=== PATIENT | male | born 1980 | race Two or more races ===

== ENCOUNTER → 2022-08-11 13:27 | Outpatient (BNVA) | payer OTHER, SELFPAY | PROVIDERS: Visit Provider Internal Medicine | DX: S39.012A Strain of muscle, fascia and tendon of lower back, initial encounter (principal); X50.0XXA Overexertion from strenuous movement or load, initial encounter | CPT/HCPCS: 99203 ==

== ENCOUNTER → 2022-08-19 13:21 | Outpatient (BNVA) | payer OTHER, SELFPAY | PROVIDERS: Visit Provider Physician Assistant | DX: S39.012D Strain of muscle, fascia and tendon of lower back, subsequent encounter (principal); X50.0XXD Overexertion from strenuous movement or load, subsequent encounter | CPT/HCPCS: 99213 ==

== ENCOUNTER 2023-08-10 08:11 | Outpatient (AMB) | payer OTHER, SELFPAY ==
--- NOTE | 2023-08-10 08:25 | MHC.PC.OV ---
Vital Signs 08/10/23 08:29 08/10/23 08:50 Height 5 ft 10.87 in Weight 193 lb 0.4 oz BMI 27.0 BP 122/90 H 122/84 Blood Pressure Location Lt brachial Lt brachial Position Sitting Sitting Pulse 89 Pulse Source Pulse Oximeter Temp Source Skin Pulse Oximetry (%) 97 Oxygen Delivery Method Room Air Intake Visit Reasons: New patient-Requesting labs Intake Note: Patient is a new patient here to establish care [employer] Sales Associate Required: No Allergies No Known Allergies Allergy (Verified 08/10/23 08:37) Medication List - Last Reconciled 08/10/23 by TREVON Florez No Known Home Meds Tobacco use date assessed: 08/10/23 Dental Screening Dental Screen Date: 08/10/23 Did you have a dental visit in the last 12 months?: Yes Did you have a dental problem in the last 6 months where you did not have access to dental care?: No Was dental information given to patient?: Patient has dentist HPI New patient-Requesting labs HPI Details Patient is a 42-year-old male who presents today for physical exam as a new patient. No PCP in many years, patient reports that he moved from [place] 4 years ago. Medical history significant for overweight and nicotine dependence-patient reports smoking about 5-7 cigarettes per day for the past 7 years-interested in nicotine patch. Reports tetanus vaccine within 10 years. Dental exam up-to-date, does not see eye doctor-denies problems with his eyes. Denies shortness of breath or chest pain. Patient requesting blood work. [facility] Surgical History No pertinent past surgical history Family History Mother No problems noted. Father No problems noted. Social History Housing: House Patient Tobacco Use Status: Never used Tobacco service: No Current occupational status: employed Cognitive needs: No Hearing needs: No Vision needs: No Questionnaire PHQ-9 Over the last 2 weeks, how often have you been bothered by any of the following problems? 1. Little interest or pleasure in doing things: not at all 2. Feeling down, depressed, or hopeless: not at all 3. Trouble falling or staying asleep, or sleeping too much: not at all 4. Feeling tired or having little energy: not at all 5. Poor appetite or overeating: not at all 6. Feeling bad about yourself - or that you are a failure or have let yourself or your family down: not at all 7. Trouble concentrating on things, such as reading the newspaper or watching television: not at all 8. Moving or speaking so slowly that other people could have noticed. Or the opposite - being so fidgety or restless that you have been moving around a lot more than usual: not at all 9. Thoughts that you would be better off or of hurting yourself in some way: not at all Total score: 0 Depression Screening Interpretation: Negative 90225 - PHQ-9 Billing: Yes Source: Developed by Drs. Andrés Waller, Lanny Boston, Jaxson Mckeon and colleagues, with an educational bridgett from [employer]. AUDIT C Alcohol Use Questionnaire (AUDIT-C) 1. How often do you have a drink containing alcohol?: Monthly or less 2. How many drinks containing alcohol do you have on a typical day when you are drinking?: 1 or 2 3. How often do you have six or more drinks on one occasion?: Never Total Score: 1 Score Reviewed/Action Taken: No JAMIE-7 AMB Questionnaire JAMIE-7 Date JAMIE - 7 assessed: 08/10/23 Feeling nervous, anxious, or on edge: 0 = Not at all Not being able to stop or control worryin = Not at all Worrying too much about different things: 0 = Not at all Trouble relaxin = Not at all Being so restless that it is hard to sit still: 0 = Not at all Becoming easily annoyed or irritable: 0 = Not at all Feeling afraid as if something awful might happen: 0 = Not at all Total JAMIE-7 score (0-4 normal; 5-9 mild; 10-14 moderate; 15-21 severe): 0 Source: Developed by Drs. Andrés Waller, Lanny Boston, Jaxson Mckeon and colleagues, with an educational bridgett from [employer]. JAMIE-7 Assessment Billing JAMIE-7 Assessment Tool: JAMIE-7 Assessment 11003 Review of Systems Const Denies body aches, Denies chills, Denies fever(s) and Denies headache(s) Eyes Denies change in vision ENT Denies dizziness, Denies otalgia, Denies headache(s), Denies nasal discharge, Denies sinus pain and Denies sore throat Card Denies chest pain, Denies edema, Denies lightheadedness and Denies dyspnea Resp Denies cough, Denies dyspnea and Denies wheezing GI Denies abdominal pain, Denies constipation, Denies diarrhea, Denies nausea and Denies vomiting Denies dysuria Musc Denies myalgias Skin/Breast Denies rash Neuro Denies dizziness and Denies headache(s) Aller/Immun Denies wheezing Physical exam (Primary Care) Vital Signs: Last Vital Signs BP 122/90 H 08/10/23 08:29 Oxygen Delivery Method Room Air 08/10/23 08:29 BMI result Body Mass Index 27.0 Tobacco/Smoking Status: Tobacco use Status Tobacco use date assessed 08/10/23 08/10/23 08:36 Patient Tobacco Use Status Never used Tobacco 08/10/23 08:36 PHQ-9: PHQ-9 Score PHQ-9: Total score 0 08/10/23 08:36 Depression Screening Interpretation: Negative Const General: cooperative and no acute distress Orientation/consciousness: patient oriented x3 HENMT Head: Yes normocephalic and Yes atraumatic Ears: TM's normal bilaterally Face and sinus: Yes sinuses nontender Mouth: oropharynx normal and moist mucous membranes Throat: Yes posterior oropharynx normal Eyes General: appearance normal, both eyes and all related structures Pupils: Equal, round and reactive pupils present EOM: EOMs intact bilaterally Neck Neck: Yes normal visual inspection, Yes full ROM and Yes no lymphadenopathy Thyroid: Thyroid normal Resp Effort & Inspection: normal respiratory effort and able to speak in complete sentences Auscultation: clear to auscultation bilaterally, no crackles, no rales, no rhonchi and no wheezes Cardio Rate: regular rate Rhythm: regular rhythm Heart sounds: S1 normal heart sound present, S2 normal heart sound present and no murmurs GI Inspection: Yes normal to inspection Palpation (GI): Soft to palpation, not firm, nontender, no guarding, not rigid and no hepatosplenomegaly Auscultation: normal bowel sounds General: No CVA tenderness Back/Spine/Pelvis Back: No CVA tenderness Skin General skin exam: no rashes or lesions noted Neuro General: patient oriented x3 Cranial nerves: Yes Equal, round and reactive pupils present Gait exam (Neuro): Normal gait present Extrem General: Yes full ROM and No edema Assessment and Plan Assessment & Plan (1) Adult general medical exam: Comment: Tetanus IZ within 10 years per pt. Code(s): Z00.00 - Encounter for general adult medical examination without abnormal findings Plan: Repeat in 1 year (2) Nicotine dependence: Comment: Smoke 5-7 cigarettes per day Code(s): F17.200 - Nicotine dependence, unspecified, uncomplicated Plan: Nicotine patch provided-do not smoke going on nicotine patch (3) Overweight (BMI 25.0-29.9): Code(s): E66.3 - Overweight Plan: Healthy food choices and exercise as tolerated Orders: Orders Vitamin B12 and Folate Today Z00.00 - Encounter for general adult medical examination without abnormal findings TSH reflex Free T4 Today Z00.00 - Encounter for general adult medical examination without abnormal findings Complete Blood Count Auto Diff Today Z00.00 - Encounter for general adult medical examination without abnormal findings Vitamin D 25-OH Total Today Z00.00 - Encounter for general adult medical examination without abnormal findings Lipid Panel Today Z00.00 - Encounter for general adult medical examination without abnormal findings Comprehensive [place]. Panel Fast Today Z00.00 - Encounter for general adult medical examination without abnormal findings Medications: New nicotine 1 patch transdermal Q24H 28 ea 1RF F17.200 - Nicotine dependence, unspecified, uncomplicated Coding Level of Care Code New Pt Prev Care 40-64y(04823) Diagnoses Adult general medical exam Z00.00 Nicotine dependence F17.200 Overweight (BMI 25.0-29.9) E66.3 Additional Codes JAMIE-7 Assessment Billing - JAMIE-7 Assessment Tool: JAMIE-7 Assessment 29022 ([id number])
[2023-08-10 08:29] VITALS: BP 122/90; PULSE 89; O2SAT 97; BMI 27.0
[2023-08-10 08:50] VITALS: BP 122/84
== END 2023-08-10 08:54 | disposition home or self-care (01) ==
PROVIDERS: PCP Nurse Practitioner Family; Visit Provider Nurse Practitioner Family
DX: Z00.00 Encounter for general adult medical examination without abnormal findings (principal); F17.210 Nicotine dependence, cigarettes, uncomplicated; E66.3 Overweight
CPT/HCPCS: 99386

== ENCOUNTER 2023-08-12 08:30 | Outpatient (REF) | payer OTHER, SELFPAY ==
[2023-08-12 08:40] LABS: MANUAL DIFF FLAG NO
[2023-08-12 08:48] LABS: Basophils Absolute Auto 0.1 X10*3/uL (0.0-0.2); Basophils Percent Auto 0.6 % (0-2); Eosinophils Absolute Auto 0.4 X10*3/uL (0.0-0.4); Hematocrit 51.6 % (42.0-52.0); Hemoglobin 17.2 g/dl (14.0-18.0); Imm Gran Abs Auto 0.12 X10*3/uL (0.00-0.03); Lymphocytes Percent Auto 17.2 % (20-40); Mean Corpuscular HGB Conc 33.3 g/dl (31.0-36.0); Mean Corpuscular Volume 83.9 fL (80.0-98.0); Mean Platelet Volume 9.7 fL (9.4-12.4); Monocytes Absolute Auto 1.1 X10*3/uL (0.1-1.2); Monocytes Percent Auto 9.3 % (2-11); Neutrophils Absolute Auto 8.2 x10*3/uL (2.0-8.3); Neutrophils Percent Auto 68.9 % (45-73); Platelet Count 290 X10*3/uL (160-400); Red Blood Count 6.15 X10*6/uL (4.60-5.80); Red Cell Distribution Width 13.8 % (11.0-16.0); White Blood Count 11.8 X10*3/uL (4.8-10.8)
[2023-08-12 09:37] LABS: Alanine Aminotransferase 47 U/L (0-40); Albumin Level 4.8 g/dL (3.5-5.0); Alkaline Phosphatase 70 U/L (39-117); Anion Gap 17 (12-20); Aspartate Amino Transferase 30 U/L (5-37); Bilirubin Total 0.6 mg/dL (0.0-1.0); Blood Urea Nitrogen 12 mg/dL (9-16); Calcium 10.2 mg/dL (8.4-10.2); Carbon Dioxide 25 mmol/L (22-29); Chloride 106 mmol/L (96-108); Cholesterol 188 mg/dL (<200); Estimated Glomerular Filt Rate > 60; Glucose Fasting 101 mg/dL (60-99); HDL Cholesterol 45 mg/dL (>40); LDL Cholesterol Calculated 130 mg/dL (<100); Potassium 4.6 mmol/L (3.3-5.1); Sodium 143 mmol/L (135-145); Total Protein 7.8 g/dL (6.5-8.0); Triglycerides 65 mg/dL (<150)
[2023-08-12 09:55] LABS: TSH reflex Free T4 0.73 uIU/mL (0.32-4.0); Vitamin D 25-OH Total 23.9 ng/mL (>30)
[2023-08-12 10:10] LABS: Folate 8.9 ng/mL (> or = 4.0); Vitamin B12 748 pg/mL (200-900)
== END 2023-08-12 08:31 | disposition home or self-care (01) ==
LOC: HO.LAB 08:30
PROVIDERS: PCP Nurse Practitioner Family; Visit Provider Nurse Practitioner Family
DX: Z00.00 Encounter for general adult medical examination without abnormal findings (principal)
CPT/HCPCS: 36415; 80053; 80061; 82306; 82607; 82746; 84443; 85025

== ENCOUNTER 2023-08-19 10:30 | Outpatient (REF) | payer OTHER, SELFPAY | END 2023-08-19 10:31 | disposition home or self-care (01) | LOC: HO.LAB 10:30 | PROVIDERS: PCP Nurse Practitioner Family; Visit Provider Nurse Practitioner Family | DX: R39.9 Unspecified symptoms and signs involving the genitourinary system (principal) | CPT/HCPCS: 81003 ==

== ENCOUNTER 2023-08-31 13:38 | Outpatient (AMB) | payer OTHER, SELFPAY ==
[2023-08-31 13:44] VITALS: BP 124/86; PULSE 86; O2SAT 98; BMI 27.3
--- NOTE | 2023-08-31 13:44 | A.OFFPC_ITS ---
Vital Signs 08/31/23 13:44 Height 5 ft 10 in Weight 190 lb BMI 27.3 BP 124/86 Blood Pressure Location Lt brachial Position Sitting Pulse 86 Pulse Source Pulse Oximeter Pulse Oximetry (%) 98 Oxygen Delivery Method Room Air Intake Visit Reasons: BM pain Allergies No Known Allergies Allergy (Verified 08/31/23 13:44) Tobacco use date assessed: 08/10/23 Dental Screening Dental Screen Date: 08/31/23 Did you have a dental visit in the last 12 months?: Yes Did you have a dental problem in the last 6 months where you did not have access to dental care?: No Was dental information given to patient?: Patient has dentist HPI HPI Comments History of Present Illness Details 42-year-old male past medical history si gnificant for elevated fasting glucose, low vitamin-D level, nicotine dependence. Patient last seen by Katrin Nath Np a few weeks ago presents today for patient states bothering feeling underneath his belly button. Patient has a fall on telephone call for interpretation during this appointment patient recommended that he use delay since medical id ore tester during this exam however patient reports he cannot understand the license certified ophthalmic medical technician and declines this and would like his to ore tester via phone. Patient's reports that she recently had surgery and that is why she could not come to the appointment with him today. Refused license certified ophthalmic medical technician. especially when sitting. 3 weeks. Patient states occasional burning when he urinates. Urinalysis completed last week unremarkable. Patient continues to feel discomfort underneath his belly button upon examination appears patient has an umbilical hernia however he denies this states his belly button has always looked puffy like that. Patient also reports left-sided lumbar back pain, urinalysis unremarkable last week negative for blood unlikely kidney stone. Will obtain lumbar spine x-ray. Patient also requesting medication for smoking cessation states nicotine patches to not work for him. [facility] Surgical History No pertinent past surgical history Family History Mother No problems noted. Father No problems noted. Social History Housing: House Patient Tobacco Use Status: Never used Tobacco service: No Current occupational status: employed Cognitive needs: No Hearing needs: No Vision needs: No Questionnaire PHQ-9 Over the last 2 weeks, how often have you been bothered by any of the following problems? 1. Little interest or pleasure in doing things: not at all 2. Feeling down, depressed, or hopeless: not at all 3. Trouble falling or staying asleep, or sleeping too much: not at all 4. Feeling tired or having little energy: not at all 5. Poor appetite or overeating: not at all 6. Feeling bad about yourself - or that you are a failure or have let yourself or your family down: not at all 7. Trouble concentrating on things, such as reading the newspaper or watching television: not at all 8. Moving or speaking so slowly that other people could have noticed. Or the opposite - being so fidgety or restless that you have been moving around a lot more than usual: not at all 9. Thoughts that you would be better off or of hurting yourself in some way: not at all Total score: 0 Depression Screening Interpretation: Negative Depression Screening Done: Yes 22617 - PHQ-9 Billing: Yes Source: Developed by Drs. Andrés Waller, Lanny Boston, Jaxson Mckeon and colleagues, with an educational bridgett from [employer]. Thrive Questionnaire Date Thrive assessed: 08/31/23 I am a: Patient What is your living situation today?: I have a steady place to live Within the past 12 months, did the food you bought not last and you didn't have the money to get more?: Never true Within the past 12 months, did you worry whether your food would run out before you got money to buy more?: Never true Do you have trouble paying for medicines?: No Do you have trouble getting transportation to medical appointments?: No Do you have trouble paying your heating and electricity bill?: No Do you have trouble taking care of your child, family member or friend?: No Do you have trouble with day-to-day activities such as bathing, preparing meals, shopping, managing finances, etc.?: No Are you currently unemployed and looking for a job?: No Are you interested in more education?: No Please select the resources that you would like help with: None AUDIT C Alcohol Use Questionnaire (AUDIT-C) 1. How often do you have a drink containing alcohol?: Monthly or less 2. How many drinks containing alcohol do you have on a typical day when you are drinking?: 1 or 2 3. How often do you have six or more drinks on one occasion?: Never Total Score: 1 Score Reviewed/Action Taken: No JAMIE-7 AMB Questionnaire JAMIE-7 Date JAMIE - 7 assessed: 08/10/23 Source: Developed by Drs. Andrés Waller, Lanny Boston, Jaxson Mckeon and colleagues, with an educational bridgett from [employer]. Review of Systems Const Denies chills, Denies fatigue, Denies fever(s) and Denies poor appetite Eyes Denies no additional complaints ENT Reports Normal hearing present Card Denies chest pain, Denies syncope, Denies rapid heart rate and Denies dyspnea Resp Denies cough and Denies dyspnea GI Reports abdominal pain (discomfort under umbilical region ), Denies change in stool character, Denies constipation, Denies GI cramping, Denies heartburn, Denies diarrhea, Denies nausea and Denies vomiting Denies dysuria, Denies urinary frequency and Denies urinary urgency Neuro Reports Normal hearing present, Denies confusion and Denies syncope Psych Denies confusion Endo Denies fatigue Physical exam (Primary Care) Vital Signs: Last Vital Signs Pulse 86 08/31/23 13:44 BP 124/86 08/31/23 13:44 Pulse Ox 98 08/31/23 13:44 Oxygen Delivery Method Room Air 08/31/23 13:44 BMI result Body Mass Index 27.3 Tobacco/Smoking Status: Tobacco use Status Tobacco use date assessed 08/10/23 08/31/23 13:48 Patient Tobacco Use Status Never used Tobacco 08/31/23 13:48 PHQ-9: PHQ-9 Score PHQ-9: Total score 0 08/31/23 13:50 Depression Screening Interpretation: Negative Thrive Assessment: Date of Thrive Assessment Date Thrive assessed 08/31/23 08/31/23 13:48 Const General: No confusion Orientation/consciousness: No confusion HENMT Head: Yes normocephalic and Yes atraumatic Eyes Conjunctivae: conjunctivae normal Chest Chest palpation & inspection: normal inspection of the chest Resp Effort & Inspection: normal respiratory effort Auscultation: clear to auscultation bilaterally, no crackles, no rhonchi and no wheezes Cardio Rate: regular rate Rhythm: regular rhythm Heart sounds: S1 normal heart sound present and S2 normal heart sound present GI Inspection: Yes normal to inspection Palpation (GI): Soft to palpation, nontender, No hepatosplenomegaly present and Hernia present umbilical Auscultation: normoactive bowel sounds General: Yes no CVA tenderness Back/Spine/Pelvis Back: no CVA tenderness Neuro General: No confusion Cranial nerves: Yes Normal hearing present Extrem General: No edema Assessment and Plan Assessment & Plan (1) Umbilical hernia: Code(s): K42.9 - Umbilical hernia without obstruction or gangrene Plan: Abdominal ultrasound ordered. (2) Lumbar back pain: Code(s): M54.50 - Low back pain, unspecified Plan: Lumbar spine x-ray ordered. Patient advise can take [id number] ibuprofen as needed for pain. (3) Nicotine dependence: Comment: Smoke 5-7 cigarettes per day Code(s): F17.200 - Nicotine dependence, unspecified, uncomplicated Plan: Patient reports indicating patches are not effective for him and would to start on medication for this. varecline 0.5mg dasy 1-3 and 1mg bid 4-7 and there after ordered for smokeing cesstion. Orders: Orders XR lumbar spine 2-3V Today M54.50 - Low back pain, unspecified US abdomen complete Today K42.9 - Umbilical hernia without obstruction or gangrene Medications: New varenicline take 1 tablet by mouth daily on days 1-3; then 1 tablet twice daily (morning and evening) on days 4-7 0.5 mg PO DIRECTED 180 tabs 3RF Discontinued nicotine Discontinued Reason: Patient no longer taking 1 patch transdermal Q24H 28 ea 1RF F17.200 - Nicotine dependence, unspecified, uncomplicated Coding Level of Care Code Est Pt Level 4 (72728) Diagnoses Umbilical hernia K42.9 Lumbar back pain M54.50 Nicotine dependence F17.200
== END 2023-08-31 14:10 | disposition home or self-care (01) ==
PROVIDERS: PCP Nurse Practitioner Family; Visit Provider Nurse Practitioner Family
DX: K42.9 Umbilical hernia without obstruction or gangrene (principal); M54.50 Low back pain, unspecified; F17.200 Nicotine dependence, unspecified, uncomplicated
CPT/HCPCS: 99214

== ENCOUNTER 2023-10-10 07:05 | Outpatient (AMB) | payer OTHER, SELFPAY ==
[2023-10-10 07:13] VITALS: BP 122/80; PULSE 68; O2SAT 98; BMI 27.5
--- NOTE | 2023-10-10 07:13 | MHC.PC.OV ---
Vital Signs 10/10/23 07:13 Height 5 ft 10 in Weight 192 lb BMI 27.5 BP 122/80 Blood Pressure Location Lt brachial Position Sitting Pulse 68 Pulse Source Pulse Oximeter Pulse Oximetry (%) 98 Oxygen Delivery Method Room Air Intake Visit Reasons: pain when defecating Allergies No Known Allergies Allergy (Verified 10/10/23 07:13) Tobacco use date assessed: 08/10/23 Dental Screening Dental Screen Date: 10/10/23 Did you have a dental visit in the last 12 months?: Yes Did you have a dental problem in the last 6 months where you did not have access to dental care?: No Was dental information given to patient?: Patient has dentist HPI HPI Comments History of Present Illness Details 43-year-old male past medical history significant for elevated fasting glucose, low vitamin-D level, nicotine dependence. Patient of Katrin Nath last seen in [facility]. Patient presents today with his who assist in interpretation. Declines certified medical translator. Patient reports pain with defecation x 2 months. Patient reports pain experiences a buring shooting pain up his rectum while having BM and lasts for a while afterward. Denies hx hemrrhoids. Denies rectal bleeding and black tarry stools. Denies urinary symptoms. States BMS a regular/soft goes daily. Denies urinary symptoms. present during exernal rectal exam, no external hemmrrhoids noted. Will draw PSA to evaluate prostate. External perirectal skin noted to have mild erythema. [facility] Surgical History No pertinent past surgical history Family History (Updated 10/10/23 @ 07:14 by Geraldine Downs [facility]) Mother No problems noted. Father No problems noted. Housing: House Patient Tobacco Use Status: Never used Tobacco service: No Current occupational status: employed Cognitive needs: No Hearing needs: No Vision needs: No Questionnaire PHQ-9 Over the last 2 weeks, how often have you been bothered by any of the following problems? 1. Little interest or pleasure in doing things: not at all 2. Feeling down, depressed, or hopeless: not at all 3. Trouble falling or staying asleep, or sleeping too much: not at all 4. Feeling tired or having little energy: not at all 5. Poor appetite or overeating: not at all 6. Feeling bad about yourself - or that you are a failure or have let yourself or your family down: not at all 7. Trouble concentrating on things, such as reading the newspaper or watching television: not at all 8. Moving or speaking so slowly that other people could have noticed. Or the opposite - being so fidgety or restless that you have been moving around a lot more than usual: not at all 9. Thoughts that you would be better off or of hurting yourself in some way: not at all Total score: 0 Depression Screening Interpretation: Negative Depression Screening Done: Yes 41988 - PHQ-9 Billing: Yes Source: Developed by Drs. Andrés Waller, Lanny Boston, Jaxson Mckeon and colleagues, with an educational bridgett from [employer]. Thrive Questionnaire Date Thrive assessed: 08/31/23 AUDIT C Alcohol Use Questionnaire (AUDIT-C) 1. How often do you have a drink containing alcohol?: Monthly or less 2. How many drinks containing alcohol do you have on a typical day when you are drinking?: 1 or 2 3. How often do you have six or more drinks on one occasion?: Never Total Score: 1 Score Reviewed/Action Taken: No JAMIE-7 AMB Questionnaire JAMIE-7 Date JAMIE - 7 assessed: 08/10/23 Source: Developed by Drs. Andrés Waller, Lanny Boston, Jaxson Mckeon and colleagues, with an educational bridgett from [employer]. Review of Systems Const Denies chills, Denies fatigue, Denies fever(s) and Denies poor appetite Eyes Denies no additional complaints ENT Reports Normal hearing present Card Denies chest pain, Denies syncope, Denies rapid heart rate and Denies dyspnea Resp Denies cough and Denies dyspnea GI Denies melena, Denies hematochezia, Denies change in stool character, Denies constipation, Denies diarrhea, Denies nausea, Denies vomiting and Reports other (rectal pain ) Denies dysuria, Denies urinary frequency and Denies urinary urgency Neuro Reports Normal hearing present, Denies confusion and Denies syncope Psych Denies confusion Endo Denies fatigue Physical exam (Primary Care) Vital Signs: Last Vital Signs Pulse 68 10/10/23 07:13 BP 122/80 10/10/23 07:13 Pulse Ox 98 10/10/23 07:13 Oxygen Delivery Method Room Air 10/10/23 07:13 BMI result Body Mass Index 27.5 Tobacco/Smoking Status: Tobacco use Status Tobacco use date assessed 08/10/23 10/10/23 07:15 Patient Tobacco Use Status Never used Tobacco 10/10/23 07:15 PHQ-9: PHQ-9 Score PHQ-9: Total score 0 10/10/23 07:25 Depression Screening Interpretation: Negative Thrive Assessment: Date of Thrive Assessment Date Thrive assessed 08/31/23 10/10/23 07:15 Const General: No confusion Orientation/consciousness: No confusion HENMT Head: Yes normocephalic and Yes atraumatic Eyes Conjunctivae: conjunctivae normal Chest Chest palpation & inspection: normal inspection of the chest Resp Effort & Inspection: normal respiratory effort Auscultation: clear to auscultation bilaterally, no crackles, no rhonchi and no wheezes Cardio Rate: regular rate Rhythm: regular rhythm Heart sounds: S1 normal heart sound present and S2 normal heart sound present GI Inspection: Yes normal to inspection Palpation (GI): Soft to palpation and nontender Rectal Exam - Male: Yes other (mild erythema surrounding rectum ) Neuro General: No confusion Cranial nerves: Yes Normal hearing present Extrem General: No edema Assessment and Plan Assessment & Plan (1) Painful defecation: Code(s): R19.8 - Other specified symptoms and signs involving the digestive system and abdomen Plan: Patient advised can use OTC barrier cream for mild erythema surrounding rectum. Patient advised to stay hydrated and eat high fiber diet to prevent straining with defecation. PSA level ordered to evaluate prostate. Referral entered to gastroenterology for further evaluation via colonscopy. (2) Nicotine dependence: Comment: Smoke 5-7 cigarettes per day Code(s): F17.200 - Nicotine dependence, unspecified, uncomplicated Plan: Patient continues to smoke 5 cigarettes daily. Strongly advised to stop. Patient educated on appropriate Varenicline. Plan Keep scheduled follow up with pcp or follow up sooner if needed. Orders: Orders PSA,Total (Free>4and<10) Today Z12.5 - Encounter for screening for malignant neoplasm of prostate Referrals Gastroenterology Referral R19.8 - Other specified symptoms and signs involving the digestive system and abdomen Coding Level of Care Code Est Pt Level 3 (77538) Diagnoses Painful defecation R19.8 Nicotine dependence F17.200
== END 2023-10-10 07:49 | disposition home or self-care (01) ==
PROVIDERS: PCP Nurse Practitioner Family; Visit Provider Nurse Practitioner Family
DX: R19.8 Other specified symptoms and signs involving the digestive system and abdomen (principal); F17.200 Nicotine dependence, unspecified, uncomplicated
CPT/HCPCS: 99213

== ENCOUNTER 2023-10-10 16:42 | Outpatient (REF) | payer OTHER, SELFPAY ==
[2023-10-10 16:54] LABS: MANUAL DIFF FLAG NO
[2023-10-10 17:35] LABS: Basophils Absolute Auto 0.1 X10*3/uL (0.0-0.2); Basophils Percent Auto 0.6 % (0-2); Eosinophils Absolute Auto 0.3 X10*3/uL (0.0-0.4); Eosinophils Percent Auto 2.6 % (0-4); Hematocrit 47.9 % (42.0-52.0); Hemoglobin 15.6 g/dl (14.0-18.0); Imm Gran Abs Auto 0.06 X10*3/uL (0.00-0.03); Imm Gran Pct Auto 0.5 % (0.0-0.4); Lymphocytes Absolute Auto 2.4 X10*3/uL (1.2-4.9); Mean Corpuscular HGB Conc 32.6 g/dl (31.0-36.0); Mean Corpuscular Hemoglobin 27.3 pg (27.0-33.0); Mean Corpuscular Volume 83.9 fL (80.0-98.0); Mean Platelet Volume 10.7 fL (9.4-12.4); Monocytes Absolute Auto 1.2 X10*3/uL (0.1-1.2); Monocytes Percent Auto 9.4 % (2-11); Neutrophils Absolute Auto 8.5 x10*3/uL (2.0-8.3); Neutrophils Percent Auto 67.9 % (45-73); Platelet Count 297 X10*3/uL (160-400); Red Blood Count 5.71 X10*6/uL (4.60-5.80); Red Cell Distribution Width 13.1 % (11.0-16.0); White Blood Count 12.5 X10*3/uL (4.8-10.8)
[2023-10-10 17:56] LABS: Estimated Average Glucose 108 mg/dL; Hemoglobin A1c % 5.4 % (<6.0)
[2023-10-10 18:28] LABS: Alanine Aminotransferase 27 U/L (0-40); Albumin Level 4.7 g/dL (3.5-5.0); Alkaline Phosphatase 68 U/L (39-117); Anion Gap 12 (12-20); Aspartate Amino Transferase 20 U/L (5-37); Bilirubin Total 0.3 mg/dL (0.0-1.0); Blood Urea Nitrogen 15 mg/dL (9-16); Calcium 9.1 mg/dL (8.4-10.2); Carbon Dioxide 27 mmol/L (22-29); Chloride 104 mmol/L (96-108); Estimated Glomerular Filt Rate > 60; Glucose Random 87 mg/dL (60-115); Potassium 4.1 mmol/L (3.3-5.1); Sodium 139 mmol/L (135-145); Total Protein 7.4 g/dL (6.5-8.0)
[2023-10-10 18:43] LABS: PSA,Total (Free>4and<10) 0.63 ng/mL (0.00-4.00)
[2023-10-10 18:44] LABS: Vitamin D 25-OH Total 34.1 ng/mL (>30)
== END 2023-10-10 16:43 | disposition home or self-care (01) ==
LOC: HO.LAB 16:42
PROVIDERS: Nurse Practitioner Family; Visit Provider Nurse Practitioner Family
DX: Z12.5 Encounter for screening for malignant neoplasm of prostate (principal); D72.829 Elevated white blood cell count, unspecified; R79.89 Other specified abnormal findings of blood chemistry; R73.01 Impaired fasting glucose
CPT/HCPCS: 36415; 80053; 82306; 83036; 84153; 85025

== ENCOUNTER 2023-11-10 09:46 | Outpatient (REF) | payer OTHER, SELFPAY ==
--- NOTE | ~2023-11-10 | US_ITS ---
EXAMINATION: US ABDOMEN LIMITED CLINICAL INFORMATION: Umbilical hernia without obstruction or gangrene. COMPARISON: None available. TECHNIQUE: Real-time imaging of the umbilicus. FINDINGS: There is a fat-containing umbilical hernia with neck measuring 1.2 x 1.1 cm and sac measuring 2.5 x 1.0 x 3.0 cm. US/US abdomen limited IMPRESSION: Fat-containing umbilical hernia as measured above.
== END 2023-11-10 09:47 | disposition home or self-care (01) ==
LOC: HO.US 09:46
PROVIDERS: PCP Nurse Practitioner Family; Visit Provider Nurse Practitioner Family
DX: K42.9 Umbilical hernia without obstruction or gangrene (principal)
CPT/HCPCS: 76705

== ENCOUNTER 2023-12-05 08:06 | Outpatient (AMB) | payer OTHER, SELFPAY ==
--- NOTE | 2023-12-05 08:09 | MHC.OFFVIS ---
Intake Vital Signs 12/05/23 08:10 Height 5 ft 10 in Weight 194 lb 0.108 oz BMI 27.8 BP 131/83 Blood Pressure Location Lt brachial Position Sitting Pulse 97 Intake Visit Reasons: Painful Defecation Intake Note: Brandan presents in the office as a new patient for painful defecation. CC: He states that sometimes he has constipation and diarrhea. Pain in the rectum when he has a BM but no blood when he has a BM. No pains in the stomach. Derrick Boat Operator Required: Yes Allergies No Known Allergies Allergy (Verified 12/05/23 08:15) HPI Painful Defecation HPI Details 43-year-old male with past medical history of transaminitis, umbilical hernia is here today for initial consultation. Patient was sent to us by his PCP rectal pain when moving his bowels. Patient reports that he will frequently have loose stools then constipation. Symptoms alternate. Patient denies any abdominal pain, cramping or any discomfort. Reports rectal itching and burning with bowel movements. Patient denies having any hemorrhoids. Does not feel any discomfort in the rectal area except for burning. Patient denies any melena, hematochezia, unintentional weight loss or ribbon like stools. Patient reports postprandial abdominal bloating. Patient reports that when he has diarrhea he does not feel like his bowels empty completely. Patient denies any dyspepsia, dysphagia or odynophagia [facility] Surgical History No pertinent past surgical history Family History Mother No problems noted. Father No problems noted. Social History Housing: House Patient Tobacco Use Status: Never used Tobacco service: No Current occupational status: employed Cognitive needs: No Hearing needs: No Vision needs: No Review of Systems Const Denies weight gain and Denies weight loss ENT Reports no additional complaints, Denies dysphagia and Denies odynophagia Card Reports no additional complaints Resp Reports no additional complaints GI Denies abdominal pain, Denies belching, Denies melena, Denies bloating, Reports constipation, Denies dysphagia, Denies excessive flatus, Denies dyspepsia, Denies heartburn, Denies diarrhea, Reports loose stools, Denies nausea, Denies odynophagia and Denies vomiting Reports no additional complaints Musc Reports no additional complaints Neuro Reports no additional complaints Psych Reports no additional complaints Endo Reports no additional complaints Physical Exam Vital Signs: Last Vital Signs Pulse 97 12/05/23 08:10 BP 131/83 12/05/23 08:10 BMI result Body Mass Index 27.8 Const General: healthy appearing, no acute distress and well developed Nutritional Appearance: well nourished Orientation/consciousness: patient oriented x3 Resp Effort & Inspection: normal respiratory effort, able to speak in complete sentences, no tracheal deviation and symmetric chest movement Auscultation: clear to auscultation bilaterally Cardio Rate: regular rate GI Inspection: Yes normal to inspection and No distended Palpation (GI): Soft to palpation, not firm, nontender and No hepatosplenomegaly present Auscultation: normal bowel sounds General: Yes no CVA tenderness Back/Spine/Pelvis Back: no CVA tenderness Skin General skin exam: elasticity normal, turgor normal and dry skin Neuro General: patient oriented x3 Psych Appearance: grossly normal Mental Status: mental status grossly normal Assessment & Plan Assessment & Plan (1) Painful defecation: Code(s): R19.8 - Other specified symptoms and signs involving the digestive system and abdomen (2) IBS (irritable bowel syndrome): Code(s): K58.9 - Irritable bowel syndrome without diarrhea Qualifiers: Irritable bowel syndrome type: with both diarrhea and constipation Qualified Code(s): K58.2 - Mixed irritable bowel syndrome Plan Discussed with patient dietary changes. Increase fiber in his diet to help him bulk stools. Will send script for Citrucel. Patient can also take stool softener. Proctosol ordered to help with rectal burning. Sitz baths with Epsom salts recommended. Patient will return in 5 weeks, sooner on as needed basis. Patient is agreeable to this plan and verbalizes understanding of instructions. He was given the opportunity to ask questions and all questions answered. Thank you for allowing me to participate in his care Medications: New methylcellulose (laxative) (Citrucel) 500 mg PO DAILY 30 tabs 2RF K59.00 - Constipation, unspecified hydrocortisone 2.5% (Proctosol HC) 1 appl ME BID-QID PRN 30 grams 2RF hemorrhoids K64.9 - Unspecified hemorrhoids docusate sodium 100 mg PO DAILY 30 caps 3RF K59.00 - Constipation, unspecified Coding Level of Care Code New Pt Level 3 (97550) Diagnoses Painful defecation R19.8 Irritable bowel syndrome with both constipation and diarrhea K58.2 Irritable bowel syndrome type: with both diarrhea and constipation Time Spent (min) 40 Comment 30 minutes spent with patient and additional 10 minutes spent reviewing his records
[2023-12-05 08:10] VITALS: BP 131/83; PULSE 97; BMI 27.8
== END 2023-12-05 09:34 | disposition home or self-care (01) ==
PROVIDERS: PCP Nurse Practitioner Family; Visit Provider Nurse Practitioner Family
DX: R19.8 Other specified symptoms and signs involving the digestive system and abdomen (principal); K58.2 Mixed irritable bowel syndrome
CPT/HCPCS: 99203

== ENCOUNTER → 2023-12-05 08:06 | Outpatient (BNVA) | payer OTHER, SELFPAY | PROVIDERS: PCP Nurse Practitioner Family; Visit Provider Nurse Practitioner Family | DX: R19.8 Other specified symptoms and signs involving the digestive system and abdomen (principal); K58.2 Mixed irritable bowel syndrome | CPT/HCPCS: 99202 ==

== ENCOUNTER 2024-01-09 08:59 | Outpatient (AMB) | payer OTHER, SELFPAY ==
--- NOTE | 2024-01-09 09:02 | A.OFFVIS_ITS ---
Intake Vital Signs 01/09/24 09:05 Height 5 ft 10 in Weight 196 lb 3.382 oz BMI 28.2 BP 135/88 Blood Pressure Location Lt brachial Position Sitting Pulse 83 Intake Visit Reasons: 5 week follow up Intake Note: Brandan presents in the office as a 5 week follow up. CC: No concerns today just a follow up. Allergies No Known Allergies Allergy (Verified 01/09/24 09:05) HPI 5 week follow up HPI Details LAST VISIT Painful defecation IBS (irritable bowel syndrome) Plan Discussed with patient dietary changes. Increase fiber in his diet to help him bulk stools. Will send script for Citrucel. Patient can also take stool softener. Proctosol ordered to help with rectal burning. Sitz baths with Epsom salts recommended. Patient will return in 5 weeks, sooner on as needed basis. Patient is agreeable to this plan and verbalizes understanding of instructions. He was given the opportunity to ask questions and all questions answered. ? Thank you for allowing me to participate in his care Medications New methylcellulose (laxative) (Citrucel) 500 mg PO DAILY 30 tabs 2RF K59.00 hydrocortisone 2.5% (Proctosol HC) 1 appl ND BID-QID PRN 30 grams 2RF hemor rhoids K64.9 docusate sodium 100 mg PO DAILY 30 caps 3RF K59.00 TODAY'S VISIT Patient is here today for follow-up. Patient is accompanied by his friend. Patient reports that he is moving his bowels better now, however states that he continues to have discomfort and burning. Patient states that he used Proctosol and did not notice much of help. Patient however would like to have refill. Patient states that he no longer has Citrucel. Uses Colace and states that is able to move his bowels better. Patient continues to have constipation of. Bowel movements every couple days or so. When having a bowel movement not always feeling like emptying completely. Patient denies any melena, hematochezia, unintentional weight loss or ribbon like stools. Patient denies any dyspepsia, dysphagia or odynophagia. [facility] Surgical History No pertinent past surgical history Family History Mother No problems noted. Father No problems noted. Social History Housing: House Patient Tobacco Use Status: Never used Tobacco service: No Current occupational status: employed Cognitive needs: No Hearing needs: No Vision needs: No Review of Systems Const Denies weight gain and Denies weight loss ENT Reports no additional complaints, Denies dysphagia and Denies odynophagia Card Reports no additional complaints Resp Reports no additional complaints GI Denies abdominal pain, Denies belching, Denies melena, Denies bloating, Reports constipation, Denies dysphagia, Denies excessive flatus, Denies dyspepsia, Denies heartburn, Denies diarrhea, Denies loose stools, Denies nausea, Denies odynophagia, Denies vomiting and Reports other (Rectal pain) Reports no additional complaints Musc Reports no additional complaints Neuro Reports no additional complaints Psych Reports no additional complaints Endo Reports no additional complaints Physical Exam Vital Signs: Last Vital Signs Pulse 83 01/09/24 09:05 BP 135/88 01/09/24 09:05 BMI result Body Mass Index 28.2 Const General: healthy appearing, no acute distress and well developed Nutritional Appearance: well nourished Orientation/consciousness: patient oriented x3 Resp Effort & Inspection: normal respiratory effort, able to speak in complete sentences, no tracheal deviation and symmetric chest movement Auscultation: clear to auscultation bilaterally Cardio Rate: regular rate GI Inspection: Yes normal to inspection and No distended Palpation (GI): Soft to palpation, not firm, nontender and No hepatosplenomegaly present Auscultation: normal bowel sounds General: Yes no CVA tenderness Back/Spine/Pelvis Back: no CVA tenderness Skin General skin exam: elasticity normal, turgor normal and dry skin Neuro General: patient oriented x3 Psych Appearance: grossly normal Mental Status: mental status grossly normal Assessment & Plan Assessment & Plan (1) Painful defecation: Code(s): R19.8 - Other specified symptoms and signs involving the digestive system and abdomen (2) IBS (irritable bowel syndrome): Code(s): K58.9 - Irritable bowel syndrome without diarrhea Qualifiers: Irritable bowel syndrome type: without diarrhea Qualified Code(s): K58.9 - Irritable bowel syndrome without diarrhea Plan Patient will start taking MiraLax in the morning and Dulcolax capsules in the evening. Patient was encouraged to increase fluid intake and activity to promote better bowel motility. Patient will return in 4 weeks paperwork about colonoscopy given to patient. Will discuss prep when patient returns food patient and his friend are agreeable to plan of care and verbalizes understanding of instructions. They were given the opportunity to ask questions and questions answered. Thank you for allowing me to participate in his care Medications: New polyethylene glycol 3350 (Miralax) 17 grams PO DAILY 510 grams 2RF Changed From docusate sodium 100 mg PO DAILY 30 caps 3RF K59.00 - Constipation, unspecified To docusate sodium 200 mg (2 x 100 mg) PO DAILY 60 caps 3RF K59.00 - Constipation, unspecified Refilled hydrocortisone 2.5% (Proctosol HC) 1 appl ND BID-QID 90 days PRN 30 grams 2RF hemorrhoids K64.9 - Unspecified hemorrhoids Coding Level of Care Code Est Pt Level 3 (55033) Diagnoses Painful defecation R19.8 Irritable bowel syndrome without diarrhea K58.9 Irritable bowel syndrome type: without diarrhea Time Spent (min) 35 Comment 15 minutes spent with patient and additional 10 minutes spent reviewing his records
[2024-01-09 09:05] VITALS: BP 135/88; PULSE 83; BMI 28.2
== END 2024-01-09 09:33 | disposition home or self-care (01) ==
PROVIDERS: PCP Nurse Practitioner Family; Visit Provider Nurse Practitioner Family
DX: R19.8 Other specified symptoms and signs involving the digestive system and abdomen (principal); K58.9 Irritable bowel syndrome, unspecified
CPT/HCPCS: 99213

== ENCOUNTER → 2024-01-09 08:59 | Outpatient (BNVA) | payer OTHER, SELFPAY | PROVIDERS: PCP Nurse Practitioner Family; Visit Provider Nurse Practitioner Family | DX: K58.9 Irritable bowel syndrome, unspecified (principal); R19.8 Other specified symptoms and signs involving the digestive system and abdomen | CPT/HCPCS: 99212 ==

== ENCOUNTER 2024-02-06 08:59 | Outpatient (AMB) | payer OTHER, SELFPAY ==
--- NOTE | 2024-02-06 09:02 | A.OFFVIS_ITS ---
Intake Vital Signs 02/06/24 09:04 Height 5 ft 10 in Weight 195 lb 5.273 oz BMI 28.0 BP 134/87 Blood Pressure Location Lt brachial Position Sitting Pulse 81 Intake Visit Reasons: 4 week follow up discuss colonoscopy/rectal pain Intake Note: Brandan returns today in 4 weeks follow up of rectal pain and to discuss colonoscopy. CC: Patient reports feeling so so and still having rectal pain. 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 Patient was encouraged to increase fluid intake and activity to promote better bowel motility. Patient will return in 4 weeks paperwork about colonoscopy given to patient. Will discuss prep when patient returns food pa joslyn and his friend are agreeable to plan of care and verbalizes understanding of instructions. They were given the opportunity to ask questions and questions answered. ? Thank you for allowing me to participate in his care Medications New polyethylene glycol 3350 (Miralax) 17 grams PO DAILY 510 grams 2RF Changed Changed From docusate sodium 100 mg PO DAILY 30 caps 3RF K59.00 Changed To docusate sodium 200 mg (2 x 100 mg) PO DAILY 60 caps 3RF K59.00 Refilled hydrocortisone 2.5% (Proctosol HC) 1 appl [place] BID-QID 90 days PRN 30 grams 2 RF hemorrhoids K64.9 TODAY'S VISIT Patient is here today for follow-up and to discuss going for colonoscopy. Patient continues to have rectal pain and burning despite taking Sitz baths and applying hydrocortisone cream. Patient also reports left lower quadrant discomfort. Denies any diarrhea. Reports occasional postprandial abdominal bloating, especially when he is constipated. Patient is taking MiraLax in the morning senna and Colace in the evening and continues to be constipated. Patient denies any rectal bleed or melena. Patient had normal H and H last month. Patient denies any unintentional weight loss. No family history of colon cancer. Patient reports that he never had anesthesia in the past. No history of sleep apnea. Not on any anticoagulation medication. Patient denies dyspepsia, dysphagia or odynophagia. [facility] Surgical History No pertinent past surgical history Family History Mother No problems noted. Father No problems noted. Social History Housing: House Patient Tobacco Use Status: Never used Tobacco service: No Current occupational status: employed Cognitive needs: No Hearing needs: No Vision needs: No Review of Systems Const Denies weight gain and Denies weight loss ENT Reports no additional complaints, Denies dysphagia and Denies odynophagia Card Reports no additional complaints Resp Reports no additional complaints GI Denies abdominal pain, Denies belching, Denies melena, Denies bloating, Denies change in bowel habits, Denies dysphagia, Denies excessive flatus, Denies dyspepsia, Denies heartburn, Denies diarrhea, Denies loose stools, Denies nausea, Denies odynophagia, Denies vomiting and Reports other (Rectal pain) Reports no additional complaints Musc Reports no additional complaints Neuro Reports no additional complaints Psych Reports no additional complaints Endo Reports no additional complaints Physical Exam Vital Signs: Last Vital Signs Pulse 81 02/06/24 09:04 BP 134/87 02/06/24 09:04 BMI result Body Mass Index 28.0 Const General: healthy appearing, no acute distress and well developed Nutritional Appearance: well nourished Orientation/consciousness: patient oriented x3 Resp Effort & Inspection: normal respiratory effort, able to speak in complete sentences, no tracheal deviation and symmetric chest movement Auscultation: clear to auscultation bilaterally Cardio Rate: regular rate GI Inspection: Yes normal to inspection and No distended Palpation (GI): Soft to palpation, not firm, nontender and No hepatosplenomegaly present Auscultation: normal bowel sounds General: Yes no CVA tenderness Back/Spine/Pelvis Back: no CVA tenderness Skin General skin exam: elasticity normal, turgor normal and dry skin Neuro General: patient oriented x3 Psych Appearance: grossly normal Mental Status: mental status grossly normal Assessment & Plan Assessment & Plan (1) Painful defecation: Code(s): R19.8 - Other specified symptoms and signs involving the digestive system and abdomen (2) IBS (irritable bowel syndrome): Code(s): K58.9 - Irritable bowel syndrome without diarrhea Qualifiers: Irritable bowel syndrome type: with constipation Qualified Code(s): K58.1 - Irritable bowel syndrome with constipation (3) Chronic idiopathic constipation: Code(s): K59.04 - Chronic idiopathic constipation Plan Patient will stop taking senna and will start taking Dulcolax with Colace. Patient will be sent for diagnostic colonoscopy. Patient continues to have rectal pain and burning as well as help lower quadrant pain. Patient has no f amily history of colorectal cancer. Patient has never been under anesthesia. Not on any anticoagulation medication. No history of sleep apnea. What to expect before during and after procedure discussed with patient. The importance of good bowel prep and clear liquid diet discussed with patient. I will see patient after the procedure, sooner on as needed basis. Patient is agreeable to this plan and verbalizes understanding of instructions. He was given the opportunity to ask questions and all questions answered. Thank you for allowing me to participate in his care Medications: New bisacodyl (Dulcolax (bisacodyl)) 10 mg (2 x 5 mg) PO BEDTIME 180 tabs 4RF Discontinued sennosides (Natural Senna Laxative) Discontinued Reason: Doctor's Order 17.2 mg (2 x 8.6 mg) PO BEDTIME 60 tabs 3RF constipation K59.00 - Constipation, unspecified Coding Level of Care Code Est Pt Level 3 (51388) Diagnoses Painful defecation R19.8 Irritable bowel syndrome with constipation K58.1 Irritable bowel syndrome type: with constipation Chronic idiopathic constipation K59.04 Time Spent (min) 30 Comment 20 minutes spent with patient and additional 10 minutes spent reviewing his records
[2024-02-06 09:04] VITALS: BP 134/87; PULSE 81; BMI 28.0
== END 2024-02-06 09:43 | disposition home or self-care (01) ==
PROVIDERS: PCP Nurse Practitioner Family; Visit Provider Nurse Practitioner Family
DX: R19.8 Other specified symptoms and signs involving the digestive system and abdomen (principal); K58.1 Irritable bowel syndrome with constipation; K59.04 Chronic idiopathic constipation
CPT/HCPCS: 99213

== ENCOUNTER → 2024-02-06 08:59 | Outpatient (BNVA) | payer OTHER, SELFPAY | PROVIDERS: PCP Nurse Practitioner Family; Visit Provider Nurse Practitioner Family | DX: K58.1 Irritable bowel syndrome with constipation (principal); K59.04 Chronic idiopathic constipation; R19.8 Other specified symptoms and signs involving the digestive system and abdomen | CPT/HCPCS: 99212 ==

== ENCOUNTER 2024-07-29 09:52 | Outpatient (AMB) | payer OTHER, SELFPAY ==
--- NOTE | 2024-07-29 10:04 | A.OFFVIS_ITS ---
Vital Signs 07/29/24 10:05 Height 5 ft 10 in Weight 183 lb BMI 26.3 BP 118/70 Blood Pressure Location Lt brachial Position Sitting Pulse 78 Pulse Source Pulse Oximeter Pulse Oximetry (%) 97 Oxygen Delivery Method Room Air Intake Visit Reasons: discuss no-showed colon Intake Note: Brandan presents in office today for a scheduled FUV to discuss a recently missed colonoscopy procedure. CC; Pt family member reports that the pt does have another procedure scheduled. However, they are hoping that they will be able to move it up per a cancellation in the schedule. Pt is still experiencing chronic sx and would like to discuss any additional advice. Aircraft Engine Dismantler Required: Yes Aircraft Engine Dismantler Services: Aircraft Engine Dismantler Offered & Declined Aircraft Engine Dismantler Name: Family Information Interpreted: non-clinical & clinical Accompanied by: Family/Other Allergies No Known Allergies Allergy (Verified 07/29/24 10:05) HPI HPI discuss no-showed colon: Details: LAST VISIT Painful defecation IBS (irritable bowel syndrome) Chronic idiopathic constipation Plan Patient will stop taking senna and will start taking Dulcolax with Colace. Patient will be sent for diagnostic colonoscopy. Patient continues to have rectal pain and burning as well as L lower quadrant pain. Patient has no family history of colorectal cancer. Patient has never been under anesthesia. Not on any anticoagulation medication. No history of sleep apnea. What to expect before during and after procedure discussed with patient. The importance of good bowel prep and clear liquid diet discussed with patient. I will see patient after the procedure, sooner on as needed basis. Patient is agreeable to this plan and verbalizes understanding of instructions. He was given the opportunity to ask questions and all questions answered. ? Thank you for allowing me to participate in his care Medications New bisacodyl (Dulcolax (bisacodyl)) 10 mg (2 x 5 mg) PO BEDTIME 180 tabs 4RF Discontinued sennosides (Natural Senna Laxative) Discontinued Reason: Doctor's Order 17.2 mg (2 x 8.6 mg) PO BEDTIME 60 tabs 3RF constipation K59.00 TODAY'S VISIT Patient is here today for follow-up and to discuss going for colonoscopy again. Patient has procedure booked for December. Missed colonoscopy last month. Patient continues to have occasional rectal burning. Patient denies any rectal pain any melena, hematochezia, unintentional weight loss or ribbon like stools. Patient reports that his stools are soft. Able to move his bowels after taking Dulcolax daily. Patient reports that he no longer has abdominal pain or discomfort. Denies any other GI concerning symptoms PFSH Medical History IBS (irritable bowel syndrome) Umbilical hernia Back pain Surgical History No pertinent past surgical history Family History Mother No problems noted. Father No problems noted. Social History Housing: House Patient Tobacco Use Status: Current everyday Tobacco user Tobacco use type: Cigarette service: No Current occupational status: employed Cognitive needs: No Hearing needs: No Vision needs: No Review of Systems Const Denies weight gain and Denies weight loss ENT Reports no additional complaints, Denies dysphagia and Denies odynophagia Card Reports no additional complaints Resp Reports no additional complaints GI Denies abdominal pain, Denies belching, Denies melena, Denies bloating, Denies change in bowel habits, Denies dysphagia, Denies excessive flatus, Denies dyspepsia, Denies heartburn, Denies diarrhea, Denies loose stools, Denies nausea, Denies odynophagia and Denies vomiting Reports no additional complaints Musc Reports no additional complaints Neuro Reports no additional complaints Psych Reports no additional complaints Endo Reports no additional complaints Physical Exam Const General: healthy appearing, no acute distress and well developed Nutritional Appearance: well nourished Orientation/consciousness: patient oriented x3 Resp Effort & Inspection: normal respiratory effort, able to speak in complete sentences, no tracheal deviation and symmetric chest movement Auscultation: clear to auscultation bilaterally Cardio Rate: regular rate GI Inspection: Yes normal to inspection and No distended Palpation (GI): Soft to palpation, not firm, nontender and No hepatosplenomegaly present Auscultation: normal bowel sounds General: Yes no CVA tenderness Back/Spine/Pelvis Back: no CVA tenderness Skin General skin exam: elasticity normal, turgor normal and dry skin Neuro General: patient oriented x3 Psych Appearance: grossly normal Mental Status: mental status grossly normal Assessment & Plan Assessment & Plan (1) Painful defecation: Code(s): R19.8 - Other specified symptoms and signs involving the digestive system and abdomen Category: Medical (2) IBS (irritable bowel syndrome): Code(s): K58.9 - Irritable bowel syndrome without diarrhea Qualifiers: Irritable bowel syndrome type: without diarrhea Qualified Code(s): K58.9 - Irritable bowel syndrome without diarrhea (3) Chronic idiopathic constipation: Code(s): K59.04 - Chronic idiopathic constipation Plan Continue Dulcolax daily. Procedure scheduled for December. Patient's will call weekly to see if the procedure can be booked sooner. Patient will try Epsom salt Sitz baths. Continue Proctosol as directed. Increase fluid intake and activity to promote better bowel motility. Patient will follow-up after the procedure, sooner on as needed basis. He is agreeable to this plan and verbalizes understanding of instructions. He was given the opportunity to ask questions and all questions answered. Thank you for allowing me to participate in his care Coding Level of Care Code Est Pt Level 3 (80234) Diagnoses Painful defecation R19.8 Irritable bowel syndrome without diarrhea K58.9 Irritable bowel syndrome type: without diarrhea Chronic idiopathic constipation K59.04 Time Spent (min) 25 Comment 15 minutes spent with patient and additional 10 minutes spent reviewing his records
[2024-07-29 10:05] VITALS: BP 118/70; PULSE 78; O2SAT 97; BMI 26.3
== END 2024-07-29 10:47 | disposition home or self-care (01) ==
PROVIDERS: PCP Nurse Practitioner Family; Visit Provider Nurse Practitioner Family
DX: R19.8 Other specified symptoms and signs involving the digestive system and abdomen (principal); K58.9 Irritable bowel syndrome, unspecified; K59.04 Chronic idiopathic constipation
CPT/HCPCS: 99213

== ENCOUNTER → 2024-07-29 09:52 | Outpatient (BNVA) | payer OTHER, SELFPAY | PROVIDERS: PCP Nurse Practitioner Family; Visit Provider Nurse Practitioner Family | DX: R19.8 Other specified symptoms and signs involving the digestive system and abdomen (principal); K58.9 Irritable bowel syndrome, unspecified; K59.04 Chronic idiopathic constipation; Z53.29 Procedure and treatment not carried out because of patient's decision for other reasons | CPT/HCPCS: 99212 ==

== ENCOUNTER 2024-08-08 10:24 | Outpatient (AMB) | payer OTHER, SELFPAY ==
--- NOTE | 2024-08-08 10:29 | A.OFFPC_ITS ---
Vital Signs 08/08/24 10:30 Height 5 ft 10 in Weight 187 lb 8 oz BMI 26.9 BP 102/64 Blood Pressure Location Lt brachial Position Sitting Pulse 81 Pulse Source Pulse Oximeter Pulse Oximetry (%) 97 Oxygen Delivery Method Room Air Intake Visit Reasons: Annual Exam Intake Note: Patient is here today for a physical. Crew Mess Attendant Required: Yes Crew Mess Attendant Language: Stone And Plate Preparer Apprentice Name: Otilia ( on phone) Information Interpreted: non-clinical & clinical Facility Maintenance Helper: Not Required per policy Accompanied by: Self / Same As Patient Allergies No Known Allergies Allergy (Verified 08/09/24 13:03) Medication List - Last Reconciled 08/09/24 by Valentín Jimenez MD bisacodyl (Dulcolax (bisacodyl)) 10 mg (2 x 5 mg) PO BEDTIME bisacodyl (Dulcolax (bisacodyl)) 20 mg (4 x 5 mg) PO ONCE 1 day cholecalciferol (vitamin D3) 25 mcg PO DAILY docusate sodium 200 mg (2 x 100 mg) PO DAILY hydrocortisone 2.5% (Proctosol HC) 1 appl [place] BID-QID PRN 90 days methylcellulose (laxative) (Citrucel) 500 mg PO DAILY polyethylene glycol 3350 (Miralax) 17 grams PO DAILY polyethylene glycol 3350 (Miralax) 238 grams PO ONCE sennosides (senna) 17.2 mg PO DAILY varenicline 0.5 mg PO DIRECTED Tobacco use date assessed: 08/08/24 Dental Screening Dental Screen Date: 08/08/24 Did you have a dental visit in the last 12 months?: Yes Did you have a dental problem in the last 6 months where you did not have access to dental care?: No Was dental information given to patient?: Patient has dentist HPI Annual Exam HPI Details 43 yr presensts to the office requesting an annual physical. Patient sister is translating via the phone. He is requesting a prescription to quit smoking. Would like to try the patches. IBS symptoms are reasonably well controlled. [facility], [facility] Medical History IBS (irritable bowel syndrome) Umbilical hernia Back pain Surgical History No pertinent past surgical history Family History Mother No problems noted. Father No problems noted. Social History Housing: House Patient Tobacco Use Status: Current everyday Tobacco user Tobacco use type: Cigarette Cigarette Packs Per Day: 1 Cigarettes Per Day: 15 e-Cigarette/Vaping Use: Never Used Second Hand Smoke Exposure: Yes service: No Current occupational status: employed Cognitive needs: No Hearing needs: No Vision needs: No Questionnaire PHQ-9 Over the last 2 weeks, how often have you been bothered by any of the following problems? 1. Little interest or pleasure in doing things: not at all 2. Feeling down, depressed, or hopeless: not at all 3. Trouble falling or staying asleep, or sleeping too much: not at all 4. Feeling tired or having little energy: not at all 5. Poor appetite or overeating: not at all 6. Feeling bad about yourself - or that you are a failure or have let yourself or your family down: not at all 7. Trouble concentrating on things, such as reading the newspaper or watching television: not at all 8. Moving or speaking so slowly that other people could have noticed. Or the opposite - being so fidgety or restless that you have been moving around a lot more than usual: not at all 9. Thoughts that you would be better off or of hurting yourself in some way: not at all Total score: 0 Depression Screening Interpretation: Negative Depression Screening Done: Yes Source: Developed by Drs. Andrés Waller, Lanny Boston, Jaxson Mckeon and colleagues, with an educational bridgett from [employer] Thrive Questionnaire Date Thrive assessed: 08/08/24 I am a: Patient What is your living situation today?: I choose not to answer this question Within the past 12 months, did the food you bought not last and you didn't have the money to get more?: I choose not to answer this question Within the past 12 months, did you worry whether your food would run out before you got money to buy more?: I choose not to answer this question Do you have trouble paying for medicines?: No Do you have trouble getting transportation to medical appointments?: No Do you have trouble paying your heating and electricity bill?: No Do you have trouble taking care of your child, family member or friend?: No Do you have trouble with day-to-day activities such as bathing, preparing meals, shopping, managing finances, etc.?: No Are you currently unemployed and looking for a job?: No Are you interested in more education?: No Please select the resources that you would like help with: None Currently or been in a relationship where the following occur: I choose not to answer THRIVE Score: 0 AUDIT C Alcohol Use Questionnaire (AUDIT-C) 1. How often do you have a drink containing alcohol?: Never Total Score: 0 JAMIE-7 AMB Questionnaire JAMIE-7 Date JAMIE - 7 assessed: 08/08/24 Feeling nervous, anxious, or on edge: 0 = Not at all Not being able to stop or control worryin = Not at all Worrying too much about different things: 0 = Not at all Trouble relaxin = Not at all Being so restless that it is hard to sit still: 0 = Not at all Becoming easily annoyed or irritable: 0 = Not at all Feeling afraid as if something awful might happen: 0 = Not at all Total JAMIE-7 score (0-4 normal; 5-9 mild; 10-14 moderate; 15-21 severe): 0 Source: Developed by Drs. Andrés Waller, Lanny Boston, Jaxson Mckeon and colleagues, with an educational bridgett from [employer] Physical exam (Primary Care) Vital Signs: Last Vital Signs Pulse 81 08/08/24 10:30 BP 102/64 08/08/24 10:30 Pulse Ox 97 08/08/24 10:30 Oxygen Delivery Method Room Air 08/08/24 10:30 BMI result Body Mass Index 26.9 Tobacco/Smoking Status: Tobacco use Status Tobacco use date assessed 08/08/24 08/08/24 10:42 Patient Tobacco Use Status Current everyday Tobacco 08/08/24 10:42 Tobacco use type Cigarette 08/08/24 10:42 e-Cigarette/Vaping Use Never Used 08/08/24 10:42 Are you ready to quit: Yes Tobacco cessation counseling provided: Yes Items discussed: Nicotine replacement Relapse Prevention: discussed the importance of a supportive environment, discussed negative mood or depression after quitting and weight gain after smoking is common Number of minutes spent counselin CPT code: 59817 - 4-10 Minutes PHQ-9: PHQ-9 Score PHQ-9: Total score 0 08/08/24 10:43 Depression Screening Interpretation: Negative Thrive Assessment: Date of Thrive Assessment Date Thrive assessed 08/08/24 08/08/24 10:42 Currently or been in a relationship where the following occur: I choose not to answer Const General: cooperative and healthy appearing Nutritional Appearance: well nourished Orientation/consciousness: patient oriented x3 Limitations: no limitations HENMT Head: Yes normal to inspection Eyes General: appearance normal, both eyes and all related structures Neck Neck: Yes normal visual inspection Chest Chest palpation & inspection: normal palpation of entire chest wall Resp Effort & Inspection: normal respiratory effort Neuro General: patient oriented x3 Assessment and Plan Assessment & Plan (1) Adult general medical exam: Comment: Tetanus IZ within 10 years per pt. Code(s): Z00.00 - Encounter for general adult medical examination without abnormal findings Plan: Blood work has been ordered. Will call with results. (2) Nicotine dependence: Comment: Smoke 5-7 cigarettes per day Code(s): F17.200 - Nicotine dependence, unspecified, uncomplicated Plan: Counseling to quit smoking done. Patches ordered. Orders: Orders Basic Metabolic Panel Today R7 - Other specified abnormal findings of blood chemistry Complete Blood Count no Diff Today R7.89 - Other specified abnormal findings of blood chemistry UA and rflx microscopic Today R7.89 - Other specified abnormal findings of blood chemistry Lipid Panel Today R7.89 - Other specified abnormal findings of blood chemistry Liver Panel Today R7.89 - Other specified abnormal findings of blood chemistry Thyroid Stimulating Hormone Today R79.89 - Other specified abnormal findings of blood chemistry Erythrocyte Sedimentation Rate Today R79.89 - Other specified abnormal findings of blood chemistry Coding Level of Care Code Est Pt Prev Care 40-64y(22369) Diagnoses Adult general medical exam Z00.00 Nicotine dependence F17.200 Additional Codes Vital Signs *Quality* - CPT code: 33619 - 4-10 Minutes ([id number])
[2024-08-08 10:30] VITALS: BP 102/64; PULSE 81; O2SAT 97; BMI 26.9
== END 2024-08-08 10:58 | disposition home or self-care (01) ==
PROVIDERS: PCP Internal Medicine; Visit Provider Internal Medicine
DX: Z00.00 Encounter for general adult medical examination without abnormal findings (principal); F17.200 Nicotine dependence, unspecified, uncomplicated

== ENCOUNTER → 2024-08-08 10:24 | Outpatient (BNVA) | payer OTHER, SELFPAY | PROVIDERS: PCP Internal Medicine; Visit Provider Internal Medicine | DX: Z00.01 Encounter for general adult medical examination with abnormal findings (principal); R79.89 Other specified abnormal findings of blood chemistry; F17.200 Nicotine dependence, unspecified, uncomplicated; Z71.6 Tobacco abuse counseling | CPT/HCPCS: 96127; 99396 ==

== ENCOUNTER 2024-08-10 09:14 | Outpatient (REF) | payer OTHER, SELFPAY ==
[2024-08-10 10:13] LABS: Hematocrit 49.8 % (42.0-52.0); Hemoglobin 16.7 g/dl (14.0-18.0); Mean Corpuscular HGB Conc 33.5 g/dl (31.0-36.0); Mean Corpuscular Hemoglobin 27.9 pg (27.0-33.0); Mean Corpuscular Volume 83.3 fL (80.0-98.0); Mean Platelet Volume 10.2 fL (9.4-12.4); Platelet Count 271 X10*3/uL (160-400); Red Blood Count 5.98 X10*6/uL (4.60-5.80); Red Cell Distribution Width 13.8 % (11.0-16.0); White Blood Count 12.2 X10*3/uL (4.8-10.8)
[2024-08-10 10:43] LABS: Alanine Aminotransferase 44 U/L (0-40); Albumin Level 4.8 g/dL (3.5-5.0); Alkaline Phosphatase 75 U/L (39-117); Anion Gap 10 (12-20); Aspartate Amino Transferase 28 U/L (5-37); Bilirubin Direct 0.2 mg/dL (0.0-0.5); Bilirubin Total 0.6 mg/dL (0.0-1.0); Blood Urea Nitrogen 14 mg/dL (9-16); Calcium 9.9 mg/dL (8.4-10.2); Carbon Dioxide 29 mmol/L (22-29); Chloride 106 mmol/L (96-108); Cholesterol 185 mg/dL (<200); Estimated Glomerular Filt Rate > 60; Glucose Random 97 mg/dL (60-115); HDL Cholesterol 41 mg/dL (>40); LDL Cholesterol Calculated 126 mg/dL (<100); Potassium 4.1 mmol/L (3.3-5.1); Sodium 141 mmol/L (135-145); Total Protein 7.6 g/dL (6.5-8.0); Triglycerides 92 mg/dL (<150)
[2024-08-10 10:59] LABS: Thyroid Stimulating Hormone 1.03 uIU/mL (0.32-4.0)
[2024-08-10 11:17] LABS: Erythrocyte Sedimentation Rate 4 MM/HR (0-15)
== END 2024-08-10 09:15 | disposition home or self-care (01) ==
LOC: HO.LAB 09:14
PROVIDERS: PCP Internal Medicine; Visit Provider Internal Medicine
DX: R79.89 Other specified abnormal findings of blood chemistry (principal)
CPT/HCPCS: 36415; 80048; 80061; 80076; 84443; 85027; 85652

== ENCOUNTER 2024-09-05 09:41 | Outpatient (AMB) | payer OTHER, SELFPAY ==
--- NOTE | 2024-09-05 09:45 | A.OFFPC_ITS ---
Vital Signs 09/05/24 09:46 Height 5 ft 10 in Weight 189 lb BMI 27.1 BP 124/82 Blood Pressure Location Lt brachial Position Sitting Pulse 84 Pulse Source Pulse Oximeter Pulse Oximetry (%) 96 Oxygen Delivery Method Room Air Intake Visit Reasons: smoking cessation Intake Note: Patient is here to follow up on smoking cessation. Pt decline flu shot today. Line Erector Required: Yes Line Erector Language: Gastroenterologist Name: Cassandra ([id number]) Information Interpreted: non-clinical & clinical Outside Plant Field Engineer: Not Required per policy Accompanied by: Self / Same As Patient Allergies No Known Allergies Allergy (Verified 09/05/24 10:28) Medication List - Last Reconciled 09/05/24 by Valentín Jimenez MD bisacodyl (Dulcolax (bisacodyl)) 10 mg (2 x 5 mg) PO BEDTIME bisacodyl (Dulcolax (bisacodyl)) 20 mg (4 x 5 mg) PO ONCE 1 day cholecalciferol (vitamin D3) 25 mcg PO DAILY docusate sodium 200 mg (2 x 100 mg) PO DAILY hydrocortisone 2.5% (Proctosol HC) 1 appl [place] BID-QID PRN 90 days methylcellulose (laxative) (Citrucel) 500 mg PO DAILY nicotine apply 1-21 mg NICOTINE PATCH daily for 28 days; follow with 1-14 mg PATCH daily for 14 days, then 1-7mg PATCH daily for 14 days transdermal polyethylene glycol 3350 (Miralax) 17 grams PO DAILY polyethylene glycol 3350 (Miralax) 238 grams PO ONCE sennosides (senna) 17.2 mg PO DAILY Tobacco use date assessed: 09/05/24 Dental Screening Dental Screen Date: 08/08/24 HPI smoking cessation HPI Details 44-year-old male returns to the office f or a follow-up visit. 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 Patient did not fill up the prescriptions on the patches. He has had some trouble with the pharmacy. He is requesting that I call the pharmacy to determine the reason why the medication was not dispensed to him. He has been smoking 5 cigarettes a day. Wanted to know the results of his blood work. Declining flu vaccination. [facility] Medical History IBS (irritable bowel syndrome) Umbilical hernia Back pain Surgical History No pertinent past surgical history Family History Mother No problems noted. Father No problems noted. Social History Housing: House Patient Tobacco Use Status: Current everyday Tobacco user Tobacco use type: Cigarette Cigarette Packs Per Day: 1 Cigarettes Per Day: 10 e-Cigarette/Vaping Use: Never Used Second Hand Smoke Exposure: Yes service: No Current occupational status: employed Cognitive needs: No Hearing needs: No Vision needs: No Questionnaire Thrive Questionnaire Date Thrive assessed: 08/08/24 I am a: Patient What is your living situation today?: I choose not to answer this question Within the past 12 months, did the food you bought not last and you didn't have the money to get more?: I choose not to answer this question Within the past 12 months, did you worry whether your food would run out before you got money to buy more?: I choose not to answer this question Do you have trouble paying for medicines?: No Do you have trouble getting transportation to medical appointments?: No Do you have trouble paying your heating and electricity bill?: No Do you have trouble taking care of your child, family member or friend?: No Do you have trouble with day-to-day activities such as bathing, preparing meals, shopping, managing finances, etc.?: No Are you currently unemployed and looking for a job?: No Are you interested in more education?: No Please select the resources that you would like help with: None Currently or been in a relationship where the following occur: I choose not to answer THRIVE Score: 0 JAMIE-7 AMB Questionnaire JAMIE-7 Date JAMIE - 7 assessed: 08/08/24 Source: Developed by Drs. Andrés Waller, Lanny Boston, Jaxson Mckeon and colleagues, with an educational bridgett from [employer]. Physical exam (Primary Care) Vital Signs: Last Vital Signs Pulse 84 09/05/24 09:46 BP 124/82 09/05/24 09:46 Pulse Ox 96 09/05/24 09:46 Oxygen Delivery Method Room Air 09/05/24 09:46 BMI result Body Mass Index 27.1 Tobacco/Smoking Status: Tobacco use Status Tobacco use date assessed 09/05/24 09/05/24 09:53 Patient Tobacco Use Status Current everyday Tobacco 09/05/24 09:53 Tobacco use type Cigarette 09/05/24 09:53 e-Cigarette/Vaping Use Never Used 09/05/24 09:53 Thrive Assessment: Date of Thrive Assessment Date Thrive assessed 08/08/24 09/05/24 09:53 Currently or been in a relationship where the following occur: I choose not to answer Const General: cooperative and healthy appearing Nutritional Appearance: well nourished Orientation/consciousness: patient oriented x3 Limitations: no limitations HENMT Head: Yes normal to inspection Eyes General: appearance normal, both eyes and all related structures Neck Neck: Yes normal visual inspection Chest Chest palpation & inspection: normal palpation of entire chest wall Resp Effort & Inspection: normal respiratory effort Neuro General: patient oriented x3 Coding Level of Care Code Est Pt Level 3 (94002) Complex EM visit Add On G2211 Diagnoses Nicotine dependence F17.200 Assessment & Plan Assessment & Plan (1) Nicotine dependence: Comment: Smoke 5-7 cigarettes per day Code(s): F17.200 - Nicotine dependence, unspecified, uncomplicated Category: Medical Plan: Message for the pharmacist left. Patient was advised to continue to abstain from smoking. Blood work results explained to the patient. Medications: Refilled nicotine apply 1-21 mg NICOTINE PATCH daily for 28 days; follow with 1-14 mg PATCH daily for 14 days, then 1-7mg PATCH daily for 14 days transdermal 56 patches 0RF
[2024-09-05 09:46] VITALS: BP 124/82; PULSE 84; O2SAT 96; BMI 27.1
== END 2024-09-05 10:18 | disposition home or self-care (01) ==
PROVIDERS: PCP Internal Medicine; Visit Provider Internal Medicine
DX: F17.200 Nicotine dependence, unspecified, uncomplicated (principal)

== ENCOUNTER → 2024-09-05 09:41 | Outpatient (BNVA) | payer OTHER, SELFPAY | PROVIDERS: PCP Internal Medicine; Visit Provider Internal Medicine | DX: F17.200 Nicotine dependence, unspecified, uncomplicated (principal); Z71.6 Tobacco abuse counseling | CPT/HCPCS: 99212 ==

== ENCOUNTER 2025-01-10 07:57 | Day surgery (SDC) | payer OTHER, SELFPAY ==
[2025-01-10 08:38] VITALS: BMI 27.6
[2025-01-10 09:06] VITALS: BP 127/88; PULSE 86; RESP 18; TEMP 36.6; O2SAT 97
[2025-01-10] MEDS: Lactated Ringers 1,000 ML 80 ML IVCONT (09:19)
--- NOTE | 2025-01-10 09:20 | P.HPSUR_ITS ---
Pre-Procedural Eval Section A - 24 Hr Update-Section A only Date of Service: 01/10/25 Section B - Complete if H&P > 30 days Chief Complaint: Other specified diseases of anus and rectum Relevant Family History (Specify if Yes): No Relevant Social History: Tobacco Use Present Medications: see Short Stay Collaborative assessment Medical History: Significant History (IBS (irritable bowel syndrome) Umbilical hernia Back pain) History of Previous Operations: No relevant previous surgery Allergies: Allergies Allergy/AdvReac Type Severity Reaction Status Date / Time No Known Allergies Allergy Verified 09/05/24 10:28 Review of Systems Sugical H&P ROS: Negative: Constitution, Cardiovascular, Respiratory, Neurological, Psychiatric, Hem-Onc, Allergic/Immunologic, Gastrointestinal, Genitourinary, Musculoskeletal, Integumentary, Endocrine and Eyes/Ears/Nose/T hroat Exam Surgical H&P Exam: Normal: HEENT, Normal: Heart, Normal: Lungs, Normal: Extremities, Normal: Abdomen, Normal: Skin and Normal: Neurological Plan Diagnosis/Plan: Unchanged I have reviewed the history and physical and performed a pertinent physical examination on my patient. No changes have occurred unless specified. Time Spent With Patient Time: Total time managing care of this patient today ____ minutes.
--- NOTE | 2025-01-10 09:36 | P.CONAN_ITS ---
FORM[facility]LY [facility], [facility] Active Problems Active Problems: All Active Problems Painful defecation (Acute) Lumbar back pain (Acute) Umbilical hernia (Acute) Low vitamin D level (Acute) Elevated fasting glucose (Acute) LFT elevation (Acute) Elevated WBC count (Acute) Overweight (BMI 25.0-29.9) (Acute) Nicotine dependence (Acute) Adult general medical exam (Acute) Past Medical History Medical History IBS (irritable bowel syndrome) Umbilical hernia Back pain Family History Family History Mother No problems noted. Father No problems noted. Family history of problems with anesthesia: No Surgical History Surgical History No pertinent past surgical history History of Problems with Anesthesia: No Social History Social History Housing: House Are you a primary congregational care pastor to a significant other at home: No Do you presently have visiting nurse or other home services: No Patient Tobacco Use Status: Current everyday Tobacco user Tobacco use type: Cigarette Cigarette Packs Per Day: 1 Cigarettes Per Day: 10 Smoked in Last 30 Days: Yes e-Cigarette/Vaping Use: Never Used Patient Interested in Nicotine Replacement: No Second Hand Smoke Exposure: Yes Have you been hit, kicked, punched, or otherwise hurt by someone within the past year? If so, by whom?: No Are you DNR?: No Advance Directives: No Advance Directives Information Provided: Yes Recently lost weight without trying: No Nutrition Risks: No Nutritional Risk service: No Current occupational status: employed Cognitive needs: No Hearing needs: No Vision needs: No Meds Allergies Allergy/AdvReac Type Severity Reaction Status Date / Time No Known Allergies Allergy Verified 09/05/24 10:28 Active Medications: Current Medications Lactated Ringer's (Lr) 1,000 mls @ 80 mls/hr IVCONT .[id number] JAMSHID Last Admin: 01/10/25 09:19 Dose: 80 mls/hr Home Medications ?Medication ?Instructions ?Recorded ?Confirmed ?Last Taken ?Type sennosides 8.6 mg tablet (senna) 17.2 mg PO DAILY 07/29/24 Unknown History Exam Height,Weight and Vital Signs: Height 5 ft 10 in Weight 87.2 kg Last Vital Signs Temp 97.9 F 01/10/25 09:06 Pulse 86 01/10/25 09:06 Resp 18 01/10/25 09:06 BP 127/88 01/10/25 09:06 Pulse Ox 97 01/10/25 09:06 O2 Del Method Room Air 01/10/25 09:06 Airway Mallampati Class: III TM Dist: >3cm Neck ROM: Full Loose/Missing/Broken Teeth: Yes and Upper Assessment and Plan Assessment Anesthesia Assessment: Anesthesia Plan Discussed and Chart Reviewed Final Anesthetic Review Family History of Problems with Anesthesia: No History of Problems with Anesthesia: No NPO: Yes ASA Class: II Final Preanesthetic Review: No Changes in Pt Med Stat, Meds/Allgs Chart Reviewed, Consent Obtained/Reviewed and Anes Risks/Benef Reviewed Patient Risk: Low Procedure Risk: Low Anesthetic Plan Anesthetic Plan: TIVA Disposition: Standard PACU
--- NOTE | 2025-01-10 09:58 | HO.OPN-COLON ---
Colonoscopy Operative Note Operative Note Date of Service: 01/10/25 Narrative: Operative Information Procedure Description: Colonoscopy Indication: abn bowel habits Anesthesia: MAC COLONOSCOPY Instrument: Olympus variable stiffness pediatric scope 190L Colonoscopy Monitoring: Vital signs and clinical assessment, continuous EKG monitoring, Pulse oximetry, Carbon Dioxide monitoring and blood pressure monitoring were done throughout the procedure. Colon withdrawal time was 12 minutes. Procedure: The patient was placed in the left lateral decubitis position and pre-procedure medications were administered. After a digital rectal examination of the ano-rectum, the video colonoscope was inserted into the rectum and advanced through the colon to the cecum/TI. The colonoscope was slowly withdrawn in a retrograde panoramic fashion and the colon mucosa was carefully examined including a retroflexed view of the rectum. Findings and interventions are described below. Procedure Difficulty: easy Findings: Terminal Ileum-normal, bx taken Right sided and left sided random colon bx taken Cecum:normal Ascending Colon: 5-8 mm sessile polyp removed with cold forceps Transverse Colon -normal Descending Colon:normal Sigmoid Colon: x 2 sessile polyps 9-10 mm removed with cold snare Rectum: Retroflexion with small internal hemorrhoids seen, grade I Anorectum - normal Intervention: cold forceps, cold snare Colon preparation: [place] Bowel Preparation Scale Right colon; 2 Transverse colon: 2 Left colon; 2 (0 = Unprepared colon segment with mucosa not seen due to solid stool that cannot be cleared. 1 = Portion of mucosa of the colon segment seen, but other areas of the colon segment not well seen due to staining, residual stool and/or opaque liquid. 2 = Minor amount of residual staining, small fragments of stool and/or opaque liquid, but mucosa of colon segment seen well. 3 = Entire mucosa of colon segment seen well with no residual staining, small fragments of stool or opaque liquid) Impression and Post Procedure Diagnosis: colon polyps x 3 internal hemorrhoids Plan: High fiber diet leaflet Avoid straining at stool, epsom salts and sitz bath, anusol supps or cream Repeat Colonoscopy in 3-4 years due to polyps or earlier if clinically indicated Above findings were reviewed with the patient and relevant handouts were provided if indicated.
[2025-01-10 10:06] VITALS: BP 113/74; PULSE 66; RESP 17; TEMP 36.1; O2SAT 98
[2025-01-10 10:21] VITALS: BP 119/79; PULSE 65; RESP 16; TEMP 36.1; O2SAT 99
== END 2025-01-10 10:33 | disposition home or self-care (01) ==
PROVIDERS: PCP Internal Medicine; Visit Provider Internal Medicine Gastroenterology
PROC: 0DJD8ZZ Inspection of Lower Intestinal Tract, Via Natural or Artificial Opening Endoscopic (ICD-10-PCS; CPT 45378; principal; 2025-01-10 09:30)
DX: D12.2 Benign neoplasm of ascending colon (principal); D12.5 Benign neoplasm of sigmoid colon; K64.0 First degree hemorrhoids; K62.89 Other specified diseases of anus and rectum; R19.4 Change in bowel habit; K58.9 Irritable bowel syndrome, unspecified; K59.04 Chronic idiopathic constipation; F17.210 Nicotine dependence, cigarettes, uncomplicated
CPT/HCPCS: 45385; 45380; 88305; J2003; J2704

== ENCOUNTER → 2025-01-10 07:57 | Outpatient (BNV) | payer OTHER, SELFPAY | PROVIDERS: PCP Internal Medicine; Visit Provider Internal Medicine Gastroenterology | DX: R19.4 Change in bowel habit (principal); D12.2 Benign neoplasm of ascending colon; D12.5 Benign neoplasm of sigmoid colon; K64.0 First degree hemorrhoids | CPT/HCPCS: 45380; 45385 ==

== ENCOUNTER 2025-03-06 08:56 | Outpatient (AMB) | payer OTHER, SELFPAY ==
--- NOTE | 2025-03-06 09:10 | A.OFFPC_ITS ---
Vital Signs 03/06/25 09:12 Height 5 ft 10 in Weight 194 lb 6 oz BMI 27.9 BP 100/72 Blood Pressure Location Lt brachial Position Sitting Pulse 60 Pulse Source Pulse Oximeter Temp 97.3 F Temp Source Temporal Artery Scan Pulse Oximetry (%) 94 Oxygen Delivery Method Room Air Intake Visit Reasons: 6mth f/u Intake Note: . J2Ee Java Developer Required: Yes J2Ee Java Developer Language: Reservation Sales Agent Name: Jerry ([id number]) Information Interpreted: non-clinical & clinical Material Disposition Inspector: Not Required per policy Accompanied by: Self / Same As Patient Allergies No Known Allergies Allergy (Verified 03/10/25 19:17) Medication List - Last Reconciled 03/06/25 by Valentín Jimenez MD bisacodyl (Dulcolax (bisacodyl)) 10 mg (2 x 5 mg) PO BEDTIME bisacodyl (Dulcolax (bisacodyl)) 20 mg (4 x 5 mg) PO ONCE 1 day cholecalciferol (vitamin D3) 25 mcg PO DAILY docusate sodium 200 mg (2 x 100 mg) PO DAILY hydrocortisone 2.5% (Proctosol HC) 1 appl [place] BID-QID PRN 90 days methylcellulose (laxative) (Citrucel) 500 mg PO DAILY nicotine 1 patch transdermal DAILY nicotine apply 1-21 mg NICOTINE PATCH daily for 28 days; follow with 1-14 mg PATCH daily for 14 days, then 1-7mg PATCH daily for 14 days transdermal polyethylene glycol 3350 (Miralax) 17 grams PO DAILY polyethylene glycol 3350 (Miralax) 238 grams PO ONCE sennosides (senna) 17.2 mg PO DAILY Tobacco use date assessed: 03/06/25 Dental Screening Dental Screen Date: 03/06/25 Did you have a dental visit in the last 12 months?: Yes Did you have a dental problem in the last 6 months where you did not have access to dental care?: No Was dental information given to patient?: Patient has dentist HPI 6mth f/u HPI Details 44 yr old male speaking thru a nigerien i nterpreter (ipad). Wishes to decrease his smoking. Currently smokes 1 ppd. Defecation issues have resolved. Currently not taking any laxatives or meds. [facility] Medical History Tobacco use disorder IBS (irritable bowel syndrome) Umbilical hernia Back pain Surgical History History of colonoscopy with polypectomy (01/10/25) No pertinent past surgical history Family History Mother No problems noted. Father No problems noted. Social History Housing: House Are you a primary critical care clinical nurse specialist to a significant other at home: No Do you presently have visiting nurse or other home services: No Alcohol intake: current Alcohol intake frequency: a few times a month Patient Tobacco Use Status: Current everyday Tobacco user Tobacco use type: Cigarette Cigarette Packs Per Day: 1 Cigarettes Per Day: 10 e-Cigarette/Vaping Use: Never Used Second Hand Smoke Exposure: Yes service: No Current occupational status: employed Cognitive needs: No Hearing needs: No Vision needs: No Questionnaire PHQ-9 Over the last 2 weeks, how often have you been bothered by any of the following problems? 1. Little interest or pleasure in doing things: not at all 2. Feeling down, depressed, or hopeless: not at all 3. Trouble falling or staying asleep, or sleeping too much: not at all 4. Feeling tired or having little energy: not at all 5. Poor appetite or overeating: not at all 6. Feeling bad about yourself - or that you are a failure or have let yourself or your family down: not at all 7. Trouble concentrating on things, such as reading the newspaper or watching television: not at all 8. Moving or speaking so slowly that other people could have noticed. Or the opposite - being so fidgety or restless that you have been moving around a lot more than usual: not at all 9. Thoughts that you would be better off or of hurting yourself in some way: not at all Total score: 0 Depression Screening Interpretation: Negative Depression Screening Done: Yes Source: Developed by Drs. Andrés Waller, Lanny Boston, Jaxson Mckeon and colleagues, with an educational bridgett from [employer] Thrive Questionnaire Date Thrive assessed: 03/06/25 Currently or been in a relationship where the following occur: No concerns reported THRIVE Score: 0 AUDIT C Alcohol Use Questionnaire (AUDIT-C) 1. How often do you have a drink containing alcohol?: Never Total Score: 0 JAMIE-7 AMB Questionnaire JAMIE-7 Date JAMIE - 7 assessed: 03/06/25 Feeling nervous, anxious, or on edge: 0 = Not at all Not being able to stop or control worryin = Not at all Worrying too much about different things: 0 = Not at all Trouble relaxin = Not at all Being so restless that it is hard to sit still: 0 = Not at all Becoming easily annoyed or irritable: 0 = Not at all Feeling afraid as if something awful might happen: 0 = Not at all Total JAMIE-7 score (0-4 normal; 5-9 mild; 10-14 moderate; 15-21 severe): 0 Source: Developed by Drs. Andrés Waller, Lanny Boston, Jaxson Mckeon and colleagues, with an educational bridgett from [employer]. Physical exam (Primary Care) Vital Signs: Last Vital Signs Temp 97.3 F 03/06/25 09:12 Pulse 60 03/06/25 09:12 BP 100/72 03/06/25 09:12 Pulse Ox 94 03/06/25 09:12 Oxygen Delivery Method Room Air 03/06/25 09:12 Care Plan Goal for BP management: BP is in range. BMI result Body Mass Index 27.9 Tobacco/Smoking Status: Tobacco use Status Tobacco use date assessed 03/06/25 03/06/25 09:30 Patient Tobacco Use Status Current everyday Tobacco 03/06/25 09:30 Tobacco use type Cigarette 03/06/25 09:30 e-Cigarette/Vaping Use Never Used 03/06/25 09:30 Are you ready to quit: Yes Tobacco cessation counseling provided: Yes Relapse Prevention: discussed the importance of a supportive environment CPT code: Less than 3 minutes PHQ-9: PHQ-9 Score PHQ-9: Total score 0 03/06/25 10:00 Depression Screening Interpretation: Negative Thrive Assessment: Date of Thrive Assessment Date Thrive assessed 03/06/25 03/06/25 09:30 Currently or been in a relationship where the following occur: No concerns reported Const General: cooperative and healthy appearing Nutritional Appearance: well nourished Orientation/consciousness: patient oriented x3 Limitations: no limitations HENMT Head: Yes normal to inspection Eyes General: appearance normal, both eyes and all related structures Neck Neck: Yes normal visual inspection Chest Chest palpation & inspection: normal palpation of entire chest wall Resp Effort & Inspection: normal respiratory effort Neuro General: patient oriented x3 Coding Level of Care Code Est Pt Level 4 (44333) Complex EM visit Add On G2211 Diagnoses Tobacco use disorder F17.200 Painful defecation R19.8 LFT elevation R79.89 Assessment & Plan Assessment & Plan (1) Tobacco use disorder: Code(s): F17.200 - Nicotine dependence, unspecified, uncomplicated Category: Medical Plan: Counselling to quit smoking done. Insurance will not cover meds. Has agreed to speak to the community navigator. (2) Painful defecation: Code(s): R19.8 - Other specified symptoms and signs involving the digestive system and abdomen Category: Medical Plan: These symptoms have resolved. Not on any laxatives (3) LFT elevation: Code(s): R79.89 - Other specified abnormal findings of blood chemistry Category: Medical Plan: Blood work has been ordered Orders: Orders Complete Blood Count no Diff 03/08/25 - Other specified abnormal findings of blood chemistry Lipid Panel 03/08/25 R7. - Other specified abnormal findings of blood chemistry UA and rflx microscopic 03/08/25. - Other specified abnormal findings of blood chemistry Basic Metabolic Panel 03/08/25 R7. - Other specified abnormal findings of blood chemistry Liver Panel 03/08/25. - Other specified abnormal findings of blood chemistry Thyroid Stimulating Hormone 03/08/25. - Other specified abnormal findings of blood chemistry Medications: Discontinued methylcellulose (laxative) (Citrucel) Discontinued Reason: Patient Completed Course 500 mg PO DAILY 30 tabs 2RF K59.00 - Constipation, unspecified docusate sodium Discontinued Reason: Patient Completed Course 200 mg (2 x 100 mg) PO DAILY 60 caps 3RF K59.00 - Constipation, unspecified hydrocortisone 2.5% (Proctosol HC) Discontinued Reason: Doctor's Order 1 appl [place] BID-QID 90 days PRN 30 grams 2RF hemorrhoids K64.9 - Unspecified hemorrhoids bisacodyl (Dulcolax (bisacodyl)) Discontinued Reason: Patient Completed Course 10 mg (2 x 5 mg) PO BEDTIME 180 tabs 4RF polyethylene glycol 3350 (Miralax) Discontinued Reason: Patient Completed Course 17 grams PO DAILY 510 grams 2RF bisacodyl (Dulcolax (bisacodyl)) take 4 tabs at noon the day before your colonoscopy Discontinued Reason: Patient Completed Course 20 mg (4 x 5 mg) PO ONCE 1 day 4 tabs 0RF constipation Z12.11 - Encounter for screening for malignant neoplasm of colon polyethylene glycol 3350 (Miralax) As directed by gastroenterology department at [facility] Discontinued Reason: Patient Completed Course 238 grams PO ONCE 238 grams 0RF Z12.11 - Encounter for screening for malignant neoplasm of colon
[2025-03-06 09:12] VITALS: BP 100/72; PULSE 60; TEMP 36.3; O2SAT 94; BMI 27.9
--- OUTSIDE RECORDS SUMMARY | 2025-03-06 09:35 | XMS_ITS | Clinical Summary ---
Author Organization [employer] Address [address] [place] [address] Care Team Providers Care Milling Machine Tender Name Role Phone Unavailable Primary Care Provider Unavailabl e Social History Tobacco Use Types Packs/Day Years Used Date Smoking Tobacco: Never Assessed Sex and Gender Information Value Date Recorded Sex Assigned at Not on file Legal Sex Male 4:26 PM EST Gender Identity Not on file Sexual Orientation Not on file Plan of Treatment Health Maintenance Due Date Last Done Comments Depression Screening 1982 HIV Screening 1982 Lipid Panel 1982 SDOH Screening 1982 Alcohol/Substance Use Screening 1994 Tobacco Screening 1994 Family Planning (PISQ) 1997 Hepatitis C Screening 2000 DTaP/Tdap/Td Vaccines (1 - Tdap) 2001 Hepatitis B Vaccines (1 of 3 - 19+ 3-dose series) 2001 COVID-19 Vaccine ( - 2023-2 5 season) 2024 Influenza Vaccine (#1) 2024 Zoster Vaccines (1 of 2) 2032 RSV Patients and Pa tients Aged 60 years or older (1 - 1-dose 75+ series) 2057 HIB Vaccines Aged Out No longer eligi ble based on patient's age to complete this topic HPV Vaccines Aged Out No longer eligi ble based on patient's age to complete this topic Hepatitis A Vaccines Aged Out No long er eligible based on patient's age to complete this topic IPV Vaccines Aged Out No longer eligi ble based on patient's age to complete this topic Meningococcal Vaccine Aged Out No marian aston eligible based on patient's age to complete this topic Pneumococcal Vaccine: Pediat rics (0 to 5 Years) and At-Risk Patients (6 to 49) Years) Aged Out No longer eligible b ased on patient's age to complete this topic RSV under 20 months Aged Out No longe r eligible based on patient's age to complete this topic Rotavirus Vaccines Aged Out No longer eligible based on patient's age to complete this topic Insurance [employer] PARTIAL
== END 2025-03-06 12:20 | disposition home or self-care (01) ==
LOC: HO.HMCH 08:57
PROVIDERS: PCP Internal Medicine; Visit Provider Internal Medicine
DX: F17.200 Nicotine dependence, unspecified, uncomplicated (principal); R19.8 Other specified symptoms and signs involving the digestive system and abdomen; R79.89 Other specified abnormal findings of blood chemistry

== ENCOUNTER → 2025-03-06 08:56 | Outpatient (BNVA) | payer OTHER, SELFPAY | PROVIDERS: PCP Internal Medicine; Visit Provider Internal Medicine | DX: R19.8 Other specified symptoms and signs involving the digestive system and abdomen (principal); R79.89 Other specified abnormal findings of blood chemistry; F17.210 Nicotine dependence, cigarettes, uncomplicated | CPT/HCPCS: 99212 ==

== ENCOUNTER 2025-03-08 09:37 | Outpatient (REF) | payer OTHER, SELFPAY ==
[2025-03-08 10:19] LABS: Mean Corpuscular Hemoglobin 28.2 pg (27.0-33.0); Mean Corpuscular Volume 82.9 fL (80.0-98.0); Mean Platelet Volume 10.1 fL (9.4-12.4); Platelet Count 247 X10*3/uL (160-400); Red Blood Count 6.03 X10*6/uL (4.60-5.80); Red Cell Distribution Width 13.8 % (11.0-16.0); White Blood Count 14.4 X10*3/uL (4.8-10.8)
[2025-03-08 11:17] LABS: Alanine Aminotransferase 52 U/L (0-40); Albumin Level 4.7 g/dL (3.5-5.0); Alkaline Phosphatase 74 U/L (39-117); Anion Gap 10 (12-20); Aspartate Amino Transferase 29 U/L (5-37); Bilirubin Direct 0.1 mg/dL (0.0-0.5); Bilirubin Total 0.5 mg/dL (0.0-1.0); Blood Urea Nitrogen 11 mg/dL (9-16); Calcium 9.5 mg/dL (8.4-10.2); Carbon Dioxide 28 mmol/L (22-29); Chloride 106 mmol/L (96-108); Cholesterol 181 mg/dL (<200); Estimated Glomerular Filt Rate > 60; Glucose Random 104 mg/dL (60-115); HDL Cholesterol 41 mg/dL (>40); LDL Cholesterol Calculated 126 mg/dL (<100); Potassium 4.3 mmol/L (3.3-5.1); Sodium 140 mmol/L (135-145); Total Protein 7.4 g/dL (6.5-8.0); Triglycerides 71 mg/dL (<150)
[2025-03-08 11:40] LABS: Thyroid Stimulating Hormone 0.97 uIU/mL (0.32-4.0)
== END 2025-03-08 09:38 | disposition home or self-care (01) ==
LOC: HO.LAB 09:37
PROVIDERS: PCP Internal Medicine; Visit Provider Internal Medicine
DX: R79.89 Other specified abnormal findings of blood chemistry (principal)
CPT/HCPCS: 36415; 80048; 80061; 80076; 84443; 85027

== ENCOUNTER 2025-10-02 14:31 | Outpatient (AMB) | payer OTHER, SELFPAY ==
--- NOTE | 2025-10-02 14:34 | A.OFFPC_ITS ---
Vital Signs 10/02/25 14:35 Height 5 ft 10 in Weight 192 lb 2 oz BMI 27.6 BP 130/78 Blood Pressure Location Lt brachial Position Sitting Pulse 78 Pulse Source Pulse Oximeter Temp 97.1 F Temp Source Temporal Artery Scan Pulse Oximetry (%) 97 Oxygen Delivery Method Room Air Intake Visit Reasons: Annual exam Intake Note: Patient is here today for a physical. Body Design Checker Required: Yes Body Design Checker Language: Renal Technician Name: Roger [id number] Information Interpreted: non-clinical & clinical Wire Machine Cutter: Not Required per policy Accompanied by: Self / Same As Patient Allergies No Known Allergies Allergy (Verified 10/02/25 14:35) Tobacco use date assessed: 10/02/25 Dental Screening Dental Screen Date: 03/06/25 HPI HPI Comments History of Present Illness Details History of Present Illness - The patient is a 45 year old individua l presenting for a follow-up to review lab results. - The patient was last seen on March 06t h for hemorrhoids, at which time lab work was ordered. - The patient reports that the hemorrhoi ds have improved significantly. - Lab work completed one to two months p rior showed slightly elevated cholestero l. - The patient is not taking any prescrip tion medications. - The patient smokes 10-12 cigarettes a day and desires to quit. Social History - Employment: The patient is currently w [employer]. - Substance Use: The patient reports smo celina 10 to 12 cigarettes per day and wishes to quit. Results - Labs: Blood work from approximately tw o months ago was reviewed and showed slightly elevated cholesterol. [facility] Medical History Tobacco use disorder IBS (irritable bowel syndrome) Umbilical hernia Back pain Surgical History (Updated 10/02/25 @ 14:45 by KYLE Carlos) History of colonoscopy with polypectomy (01/10/25) Family History Mother No problems noted. Father No problems noted. Social History (Updated 10/02/25 @ 14:45 by KYLE Carlos) Housing: House Are you a primary post acute care registered nurse to a significant other at home: No Do you presently have visiting nurse or other home services: No Alcohol intake: current Alcohol intake frequency: a few times a month Patient Tobacco Use Status: Current everyday Tobacco user Tobacco use type: Cigarette Cigarette Packs Per Day: 1 Cigarettes Per Day: 12 e-Cigarette/Vaping Use: Never Used Second Hand Smoke Exposure: Yes service: No Current occupational status: employed Cognitive needs: No Hearing needs: No Vision needs: No Questionnaire PHQ-9 Over the last 2 weeks, how often have you been bothered by any of the following problems? 1. Little interest or pleasure in doing things: not at all 2. Feeling down, depressed, or hopeless: not at all 3. Trouble falling or staying asleep, or sleeping too much: not at all 4. Feeling tired or having little energy: not at all 5. Poor appetite or overeating: not at all 6. Feeling bad about yourself - or that you are a failure or have let yourself or your family down: not at all 7. Trouble concentrating on things, such as reading the newspaper or watching television: not at all 8. Moving or speaking so slowly that other people could have noticed. Or the opposite - being so fidgety or restless that you have been moving around a lot more than usual: not at all 9. Thoughts that you would be better off or of hurting yourself in some way: not at all Total score: 0 Depression Screening Interpretation: Negative Depression Screening Done: Yes Source: Developed by Drs. Andrés Waller, Lanny Boston, Jaxson Mckeon and colleagues, with an educational bridgett from [employer]. Thrive Questionnaire Date Thrive assessed: 03/06/25 I am a: Patient What is your living situation today?: I have a steady place to live Within the past 12 months, did the food you bought not last and you didn't have the money to get more?: I choose not to answer this question Within the past 12 months, did you worry whether your food would run out before you got money to buy more?: I choose not to answer this question Do you have trouble paying for medicines?: No Do you have trouble getting transportation to medical appointments?: No Do you have trouble paying your heating and electricity bill?: No Do you have trouble taking care of your child, family member or friend?: No Do you have trouble with day-to-day activities such as bathing, preparing meals, shopping, managing finances, etc.?: No Are you currently unemployed and looking for a job?: No Are you interested in more education?: No Please select the resources that you would like help with: None Currently or been in a relationship where the following occur: I choose not to answer THRIVE Score: 0 AUDIT C Alcohol Use Questionnaire (AUDIT-C) 1. How often do you have a drink containing alcohol?: Never Total Score: 0 JAMIE-7 AMB Questionnaire JAMIE-7 Date JAMIE - 7 assessed: 03/06/25 Feeling nervous, anxious, or on edge: 0 = Not at all Not being able to stop or control worryin = Not at all Worrying too much about different things: 0 = Not at all Trouble relaxin = Not at all Being so restless that it is hard to sit still: 0 = Not at all Becoming easily annoyed or irritable: 0 = Not at all Feeling afraid as if something awful might happen: 0 = Not at all Total JAMIE-7 score (0-4 normal; 5-9 mild; 10-14 moderate; 15-21 severe): 0 Source: Developed by Drs. Andrés Waller, Lanny Boston, Jaxson Mckeon and colleagues, with an educational bridgett from [employer]. Review of Systems Narrative Review of Systems - Constitutional: Reports feeling well. - Gastrointestinal: Reports intermittent hemorrhoid symptoms that have improved. - All other systems reviewed and are negative, with the patient denying any other problems or concerns. Physical exam (Primary Care) Vital Signs: Last Vital Signs Temp 97.1 F 10/02/25 14:35 Pulse 78 10/02/25 14:35 BP 130/78 10/02/25 14:35 Pulse Ox 97 10/02/25 14:35 Oxygen Delivery Method Room Air 10/02/25 14:35 BMI result Body Mass Index 27.6 Tobacco/Smoking Status: Tobacco use Status Tobacco use date assessed 10/02/25 10/02/25 14:47 Patient Tobacco Use Status Current everyday Tobacco 10/02/25 14:47 Tobacco use type Cigarette 10/02/25 14:47 e-Cigarette/Vaping Use Never Used 10/02/25 14:47 PHQ-9: PHQ-9 Score PHQ-9: Total score 0 10/02/25 14:47 Depression Screening Interpretation: Negative Thrive Assessment: Date of Thrive Assessment Date Thrive assessed 03/06/25 10/02/25 14:47 Currently or been in a relationship where the following occur: I choose not to answer Narrative Physical Exam General: Cooperative and healthy appearing Nutritional Appearance: Well nourished Orientation/consciousness: Patient oriented x3 Limitations: No limitations Head: Normal to inspection General: Appearance normal, both eyes and all related structures Neck: Normal visual inspection Chest: Normal palpation of entire chest wall Respiratory: Normal respiratory effort Neurology: Patient oriented x3 Coding Level of Care Code Est Pt Level 4 (37806) Complex visit Add On G2211 Diagnoses Nicotine dependence F17.200 Assessment & Plan Assessment & Plan (1) Nicotine dependence: Comment: Smoke 5-7 cigarettes per day Code(s): F17.200 - Nicotine dependence, unspecified, uncomplicated Category: Medical Plan Plan - Tobacco Use Disorder: Counseled on smoking cessation. - Tobacco Use Disorder: Discussed nicotine replacement options, including patch and gum. - Tobacco Use Disorder: Patient opted for the nicotine patch and a prescription was sent. - Tobacco Use Disorder: Advised the patient that the patch may be an [id number] expense as insurance may not cover it. - Tobacco Use Disorder: Instructed the patient not to smoke while using the patch and to remove the patch if they do smoke. - Hemorrhoids: Condition has improved; will continue to monitor. - Hyperlipidemia: Noted slightly elevated cholesterol on recent labs; will continue to monitor. - Preventative Care: Offered an influenza vaccine, which the patient declined. Discussion Notes I reviewed the patient's recent lab results, which were unremarkable apart from a slightly elevated cholesterol level. We discussed the status of the patient's hemorrhoids, which have improved. I addressed the patient's tobacco use of 10-12 cigarettes daily and provided counseling on smoking cessation. We reviewed nicotine replacement options, including the patch and gum, and I noted that insurance may not cover the cost. The patient opted to try the nicotine patch, and I sent a prescription. I provided specific instructions on using the patch, emphasizing that the patient must not smoke while wearing it and should remove it if smoking occurs. I also offered an influenza vaccine, which the patient declined. Patient Instructions - A prescription for a nicotine patch has been sent to your pharmacy to help you stop smoking. - You must remember to put the patch on every day. - Do not smoke while you are wearing the patch. - If you decide to smoke, you must take the patch off first. - Your insurance may not cover the cost of the patches, so you might have to pay for them. - No other medications were prescribed at this time. Medications: New nicotine apply 1-21 mg NICOTINE PATCH daily for 28 days; follow with 1-14 mg PATCH daily for 14 days, then 1-7mg PATCH daily for 14 days transdermal 56 patches 0RF Refilled cholecalciferol (vitamin D3) 25 mcg PO DAILY 90 tabs 3RF R79.89 - Other specified abnormal findings of blood chemistry
[2025-10-02 14:35] VITALS: BP 130/78; PULSE 78; TEMP 36.2; O2SAT 97; BMI 27.6
--- OUTSIDE RECORDS SUMMARY | 2025-10-02 19:54 | XMS_ITS | Clinical Summary ---
Author Organization [employer] Address [address] [facility] 7 [place] [address] Care Team Providers Care Perforator Loader Name Role Phone Unavailable Primary Care Provider [...] 1982 Lipid Panel 1982 SDOH Screening 1982 Disability Screening 1982 Alcohol/Substance Use Screening 1994 Tobacco Screening 1994 Family Planning (PISQ) 1997 HPV Vaccines (1 - Male 3-dos e series) 1997 Hepatitis C Screening 2000 DTaP/Tdap/Td Vaccines (1 - Tdap) 2001 Hepatitis B Vaccines (1 of 3 - 19+ 3-dose series) 2001 COVID-19 Vaccine (1 - 2024-2 6 season) 2025 Influenza Vaccine (#1) 2025 Zoster Vaccines (1 of 2) 2032 RSV [...] patient's age to complete this topic Meningococcal B Vaccine Aged Out No l onger eligible based on patient's age to complete this topic Meningococcal Vaccine Aged Out No marian aston eligible based on patient's age to complete this topic Pneumococcal Vaccine: Pediat rics (0 to 5 Years) and At-Risk Patients (6 to 49) Years Aged Out No longer eligible b ased on patient's age to complete this topic RSV under 20 months Aged Out No longe r eligible based on patient's age to complete this topic Rotavirus Vaccines Aged Out No longer eligible based on patient's age to complete this topic Insurance N PARTIAL
--- OUTSIDE RECORDS SUMMARY | 2025-10-02 19:54 | XMS_ITS | Clinical Summary ---
Author Organization [facility] Address [address] [place] [id number] Phone Care Team Providers Care Field Advisor Name Role Phone Leti Freitas MD Primary Care Provider [phone] Medications bisacodyl (DULCOLAX) 5 mg EC tablet Take 10 mg by mouth nightly at bedtime. 4 Active SENNA 8.6 mg tablet TAKE 2 TABLETS BY MOUTH AT BEDTIME FOR CONSTIPATION 4 Active varenicline (CHANTIX) 0.5 MG tablet TAKE 1 TABLET BY MOUTH DAILY ON DAYS 1-3 THEN 1 TABLET TWICE DAILY (MORNING AND EVENING) ON DAYS 4-7 4 Active Social History Tobacco Use Types Packs/Day Years Used Date Smoking Tobacco: Never Assessed Education Answer Date Recorded Are you interested in more education? Not on hilda e 09/22/2023 Are you concerned about learning? Not on file 09/22/2023 No 09/22/2023 No 09/22/2023 Digital Access Answer Date Recorded No 09/22/2023 No 09/22/2023 Reliable internet access at home? Not on file 09/22/2023 Device with a working camera? Not on file Sex and Gender Information Value Date Recorded Sex Assigned at Not on file Legal Sex Male 12:00 PM EST Gender Identity Not on file Sexual Orientation Not on file Plan of Treatment Health Maintenance Due Date Last Done Comments Adult Td,Tdap Booster 1982 LIPID PANEL 1982 DEPRESSION SCREENING 1994 SMOKING Hx and SMOKELESS TOB ACCO SCREENING 1995 HEPATITIS C SCREENING 2000 HIV ONE-TIME SCREENING (18-6 5 YEARS) 2000 INFLUENZA VACCINE (#1) 2025 COVID-19 VACCINE (2024-2 6 season) 2025 HEPATITIS A VACCINES Aged Out No long er eligible based on patient's age to complete this topic HIB VACCINES Aged Out No longer eligi ble based on patient's age to complete this topic IPV VACCINES Aged Out No longer eligi ble based on patient's age to complete this topic MENINGOCOCCAL VACCINES (ACWY) Aged Out No longer eligible based on patient's age to complete this topic MENINGOCOCCAL VACCINES (B) Aged Out N o longer eligible based on patient's age to complete this topic PNEUMOCOCCAL VACCINES (0-49 years) Aged Out No longer eligible based on patient's age to complete this topic Medical Devices Not on file Insurance [facility] NON NSPG PCP [facility] NON NSPG PCP [facility] [employer] NON NSPG PCP [facility] [employer] NON NSPG PCP S[facility] [employer] NON NSPG PCP [facility] NON NSPG PCP [facility] Care Teams Field Advisor Relationship Specialty Start Date End Date Leti Freitas MD [address] [place] [address] Drive [address] [place] [address] [phone] PCP - General 09/22/23 Additional Source Comments The information contained in this document represents components of the legal health record. It is not the complete legal health record.[facility]
== END 2025-10-02 15:42 | disposition home or self-care (01) ==
LOC: HO.HMCH 14:32
PROVIDERS: PCP Internal Medicine; Visit Provider Internal Medicine
DX: F17.200 Nicotine dependence, unspecified, uncomplicated (principal)

== ENCOUNTER → 2025-10-02 14:31 | Outpatient (BNVA) | payer OTHER, SELFPAY | PROVIDERS: PCP Internal Medicine; Visit Provider Internal Medicine | DX: F17.210 Nicotine dependence, cigarettes, uncomplicated (principal); E78.00 Pure hypercholesterolemia, unspecified; K64.9 Unspecified hemorrhoids | CPT/HCPCS: 99212 ==